=== PATIENT | male | born 1955 | race Caucasian/White ===

== ENCOUNTER 2021-04-30 20:36 | Emergency (ER) | payer MEDICAID, MEDICARE, OTHER ==
[~2021-04-30] VITALS: Ht 157.5 cm; Wt 77.1 kg
[2021-04-30 21:10] VITALS: BP 103/66
--- NOTE | 2021-04-30 21:13 | NUR ---
TO LOBBY A/W BED VIA WHEELCHAIR
[2021-04-30] MEDS ORDERED: NACL 0.9% 1,000 ML IV SCH (22:35)
[2021-04-30] MEDS ORDERED: ONDANSETRON 4 MG/2 ML VIAL IVP ONE (22:35)
--- NOTE | 2021-04-30 22:44 | NUR ---
PT TAKEN TO CT FROM [facility]
[2021-04-30 23:08] LABS: BASOPHILS # (AUTO) 0.1 K/uL (0.00-0.22); BASOPHILS % (AUTO) 0.9 % (0.0-2.0); EOSINOPHILS # (AUTO) 0.1 K/uL (0-0.4); EOSINOPHILS % (AUTO) 1.6 % (0.0-4.0); HEMATOCRIT 46.5 % (36-52); HEMOGLOBIN 15.5 g/dL (12.0-18.0); LYMPHOCYTES # (AUTO) 2.1 K/uL (2.0-11.5); LYMPHOCYTES % (AUTO) 25.7 % (20.5-51.1); MEAN CORPUSCULAR HEMOGLOBIN 30 pg (27-31); MEAN CORPUSCULAR HGB CONC 33 g/dL (33-37); MEAN CORPUSCULAR VOLUME 90.8 fL (80-94); MONOCYTES # (AUTO) 0.7 K/uL (0.8-1.0); MONOCYTES % (AUTO) 8.6 % (1.7-9.3); NEUTROPHILS # (AUTO) 5.1 K/uL (1.8-7.7); NEUTROPHILS % (AUTO) 63.2 % (42.2-75.2); PLATELET COUNT (AUTO) 195 K/uL (140-450); RED BLOOD CELL COUNT(AUTO) 5.12 MIL/uL (4.20-6.10); RED CELL DISTRIBUTION WIDTH 13.4 % (11.6-13.7); WHITE BLOOD COUNT (AUTO) 8.1 K/uL (4.8-10.8)
[2021-04-30 23:28] LABS: ANION GAP 14.1 (8-16); CARBON DIOXIDE 24.7 mmol/L (21-32); CREATININE 1.3 mg/dL (0.6-1.3); POTASSIUM 3.8 mmol/L (3.5-5.1); TOTAL BILIRUBIN 0.9 mg/dL (0.0-1.0)
[2021-05-01] MEDS ORDERED: MAGNESIUM CITRATE 300 ML BTL PO ONE (00:25)
[2021-05-01 02:40] VITALS: BP 112/78
[2021-05-01 02:40] LABS: APPEARANCE,URINE CLOUDY (CLEAR); BILIRUBIN,URINE NEGATIVE (NEGATIVE); BLOOD, URINE 1+ (NEGATIVE); COLOR,URINE YELLOW (YELLOW); LEUKOCYTE ESTERASE ,URINE 3+ (NEGATIVE); NITRITE, URINE POSITIVE (NEGATIVE); PH,URINE 5.5 (5.0-9.0); UGLUCOSE NEGATIVE (NEGATIVE)
--- NOTE | 2021-05-01 02:40 | NUR ---
PATIENT ELOPED FROM FACILITY. DISCHARGE INSTRUCTIONS NOT GIVEN TO PATIENT. DR. CESPEDES NOTIFIED.
[2021-05-01] MEDS ORDERED: CEPH-588 PO (02:50)
[2021-05-01 03:06] LABS: RBC,URINE 0-5 /HPF (0-5); WBC,URINE TOO MANY TO COUNT /HPF (0-5)
== END 2021-05-01 02:40 | disposition left against medical advice (07) ==
LOC: MED 20:36
DX: R33.9 Retention of urine, unspecified (principal); N39.0 Urinary tract infection, site not specified; K56.41 Fecal impaction; Z79.899 Other long term (current) drug therapy
CPT/HCPCS: 36415; 80053; 81001; 83690; 85025; 87086; 99284

== ENCOUNTER 2021-07-14 19:31 | Inpatient (IN) | payer MEDICARE, MEDICAID, SELFPAY ==
[~2021-07-14] VITALS: Ht 160 cm; Wt 63.5 kg
[~2021-07-14 19:31] MED LIST: CEPH-588 PO
[2021-07-14] MEDS ORDERED: NACL 0.9% 1,000 ML IV ONE ×3 (20:50→23:45)
[2021-07-14 23:09] LABS: HEMOGLOBIN 14.9 g/dL (12.0-18.0); MEAN CORPUSCULAR HEMOGLOBIN 30 pg (27-31); MEAN CORPUSCULAR HGB CONC 33 g/dL (33-37); MEAN CORPUSCULAR VOLUME 91.1 fL (80-94); PLATELET COUNT (AUTO) 56 K/uL (140-450); RED BLOOD CELL COUNT(AUTO) 4.94 MIL/uL (4.20-6.10); WHITE BLOOD COUNT (AUTO) 20.7 K/uL (4.8-10.8)
[2021-07-14] MEDS ORDERED: NACL 0.9% 2,000 ML IV ONE (23:20)
[2021-07-14] MEDS ORDERED: VANCOMYCIN 1,000 MG in DEXTROSE 5% 250 ML IV ONE (23:20)
[2021-07-14 23:29] LABS: ALBUMIN 2.7 g/dL (3.4-5.0); ANION GAP 18.7 (8-16); CARBON DIOXIDE 21.6 mmol/L (21-32); CREATININE 3.9 mg/dL (0.6-1.3); POTASSIUM 4.3 mmol/L (3.5-5.1); TOTAL BILIRUBIN 1.4 mg/dL (0.0-1.0)
[2021-07-14 23:32] LABS: LYMPHOCYTES % (MANUAL) 3 % (20-46); MONOCYTES % (MANUAL) 2 % (5-12)
[2021-07-14] MEDS ORDERED: VANCOMYCIN 1,000 MG VIAL ONE (23:35)
[2021-07-14 23:43] LABS: APPEARANCE,URINE CLOUDY (CLEAR); BILIRUBIN,URINE 2+ (NEGATIVE); BLOOD, URINE 3+ (NEGATIVE); COLOR,URINE BROWN (YELLOW); LEUKOCYTE ESTERASE ,URINE 3+ (NEGATIVE); NITRITE, URINE NEGATIVE (NEGATIVE); PH,URINE 6.5 (5.0-9.0); UGLUCOSE NEGATIVE (NEGATIVE)
[2021-07-14] MEDS ORDERED: cefTRIAXone 2,000 MG in DEXTROSE 5% 100 ML IV ONE (23:45)
[2021-07-14 23:51] LABS: PROTHROMBIN TIME 14.6 secs (10.8-13.4)
[2021-07-15 00:08] LABS: RBC,URINE TOO NUMEROUS TO COUN /HPF (0-5)
[2021-07-15 00:09] LABS: WBC,URINE 60-80 /HPF (0-5)
[2021-07-15 00:10] LABS: CALCIUM OXALATE CRYSTALS,UR 0-10 /HPF (None Seen)
[2021-07-15] MEDS ORDERED: NACL 0.9% 1,000 ML IV ONE (00:20)
[2021-07-15] MEDS ORDERED: cefTRIAXone 2,000 MG VIAL ONE (01:16)
[2021-07-15] MEDS ORDERED: NOREPINEPHRINE 4 MG in DEXTROSE 5% 250 ML IV ONE (01:25)
[2021-07-15] MEDS ORDERED: NOREPINEPHRINE 4 MG/4 ML VIAL IV ONE (01:38)
[2021-07-15] MEDS ORDERED: ACETAMINOPHEN 325 MG TAB PO PRN (07:05)
[2021-07-15] MEDS ORDERED: MORPHINE SULFATE 2 MG/ML SYR IVP PRN (07:05)
[2021-07-15] MEDS ORDERED: POTASSIUM CHLORIDE 10 MEQ TABER PO PRN (07:05)
[2021-07-15] MEDS ORDERED: LORazepam 2 MG/ML VIAL IM/IVP PRN (07:05)
[2021-07-15] MEDS ORDERED: ZOLPIDEM 5 MG TAB PO PRN (07:05)
[2021-07-15] MEDS ORDERED: HYDROcodone/APAP 5/325 MG 1 TAB TAB PO PRN (07:05)
[2021-07-15] MEDS ORDERED: MAG SULF 2000 MG/WATER PREMIX 50 ML IV PRN (07:05)
[2021-07-15] MEDS ORDERED: DOCUSATE SODIUM 100 MG GELCAP PO PRN (07:05)
[2021-07-15] MEDS ORDERED: ONDANSETRON 4 MG/2 ML VIAL IM/IVP PRN (07:05)
[2021-07-15 07:37] LABS: BASOPHILS % (AUTO) 0.1 % (0.0-2.0); EOSINOPHILS # (AUTO) 0.5 K/uL (0-0.4); EOSINOPHILS % (AUTO) 2.4 % (0.0-4.0); HEMATOCRIT 42.9 % (36-52); HEMOGLOBIN 14.1 g/dL (12.0-18.0); LYMPHOCYTES # (AUTO) 0.5 K/uL (2.0-11.5); LYMPHOCYTES % (AUTO) 2.4 % (20.5-51.1); MEAN CORPUSCULAR HEMOGLOBIN 30 pg (27-31); MEAN CORPUSCULAR HGB CONC 33 g/dL (33-37); MEAN CORPUSCULAR VOLUME 91.8 fL (80-94); MONOCYTES # (AUTO) 1.1 K/uL (0.8-1.0); MONOCYTES % (AUTO) 4.8 % (1.7-9.3); NEUTROPHILS # (AUTO) 20.6 K/uL (1.8-7.7); NEUTROPHILS % (AUTO) 90.3 % (42.2-75.2); PLATELET COUNT (AUTO) 47 K/uL (140-450); RED BLOOD CELL COUNT(AUTO) 4.67 MIL/uL (4.20-6.10); RED CELL DISTRIBUTION WIDTH 14.5 % (11.6-13.7); WHITE BLOOD COUNT (AUTO) 22.8 K/uL (4.8-10.8)
[2021-07-15] MEDS ORDERED: TAMS0.4C96 PO (08:09)
[2021-07-15 08:30] LABS: CHOL/HDL RATIO 3.1 (1-4.5); MAGNESIUM 1.7 mg/dL (1.8-2.4); PHOSPHORUS 3.9 mg/dL (2.5-4.9); THYROID STIMULATING HORMONE 0.51 uIU/mL (0.34-3.74)
[2021-07-15 09:23] LABS: PROTHROMBIN TIME 16.2 secs (10.8-13.4)
[2021-07-15] MEDS: NACL 0.9% 1,000 ML IV SCH ×3 (11:08→23:53)
[2021-07-15 11:36] LABS: BARBITURATE, URINE NEGATIVE ng/ml (NEG <=200); BENZODIAZEPINE, URINE NEGATIVE ng/mL (NEG <=200); CANNABINOID, URINE NEGATIVE ng/mL (NEG <=50); COCAINE, URINE NEGATIVE ng/mL (NEG <=300); OPIATE, URINE NEGATIVE ng/mL (NEG <=2000); PHENCYCLIDINE SCREEN,URINE NEGATIVE ng/mL (NEG <=25)
[2021-07-15] MEDS ORDERED: PIPERACILLIN/TAZOBACTAM 2.25 GM VIAL IV ONE ×2 (12:11→20:54)
[2021-07-15] MEDS: PIPERACILLIN/TAZOBACTAM 2.25 GM in DEXTROSE 5% 50 ML IV SCH ×2 (12:14→21:10)
[2021-07-15] MEDS ORDERED: bisacodyL 10 MG SUPP RC ONE (14:20)
[2021-07-15] MEDS: SENNA 8.6 MG TAB PO SCH ×2 (17:14→21:10)
[2021-07-15 20:36] VITALS: BP 120/56
[2021-07-15] MEDS: POLYETHYLENE GLYCOL 17 GM/PKT PO SCH (21:10)
[2021-07-15] MEDS: LACTULOSE 20 GM/30 ML UDC PO SCH (21:10)
[2021-07-15 22:00] VITALS: BP 117/55
[2021-07-15 23:00] VITALS: BP 114/53
[2021-07-16] VITALS (19 sets, daily range): BP systolic 104–162; BP diastolic 52–80
[2021-07-16] MEDS ORDERED: PIPERACILLIN/TAZOBACTAM 2.25 GM VIAL IV ONE (04:43)
[2021-07-16] MEDS: PIPERACILLIN/TAZOBACTAM 2.25 GM in DEXTROSE 5% 50 ML IV SCH ×3 (04:45→21:00)
[2021-07-16 06:11] LABS: HEMATOCRIT 40.3 % (36-52); HEMOGLOBIN 13.4 g/dL (12.0-18.0); MEAN CORPUSCULAR HEMOGLOBIN 30 pg (27-31); MEAN CORPUSCULAR HGB CONC 33 g/dL (33-37); MEAN CORPUSCULAR VOLUME 91.3 fL (80-94); PLATELET COUNT (AUTO) 39 K/uL (140-450); RED BLOOD CELL COUNT(AUTO) 4.42 MIL/uL (4.20-6.10); RED CELL DISTRIBUTION WIDTH 14.5 % (11.6-13.7)
[2021-07-16 06:23] LABS: ANION GAP 16.2 (8-16); CARBON DIOXIDE 18.7 mmol/L (21-32); CREATININE 3.2 mg/dL (0.6-1.3); POTASSIUM 3.9 mmol/L (3.5-5.1)
[2021-07-16 06:24] LABS: WHITE BLOOD COUNT (AUTO) 27.8 K/uL (4.8-10.8)
[2021-07-16 06:34] LABS: MAGNESIUM 1.9 mg/dL (1.8-2.4); PHOSPHORUS 4.1 mg/dL (2.5-4.9)
[2021-07-16 06:58] LABS: BASOPHILS % (MANUAL) 0 % (0-2); EOSINOPHILS % (MANUAL) 2 % (0-4); LYMPHOCYTES % (MANUAL) 3 % (20-46); MONOCYTES % (MANUAL) 5 % (5-12)
[2021-07-16 08:06] LABS: T4 (THYROXINE) 5.3 ug/dL (4.5-12.0)
[2021-07-16] MEDS: NACL 0.9% 1,000 ML IV SCH ×2 (08:20→16:50)
[2021-07-16] MEDS: POLYETHYLENE GLYCOL 17 GM/PKT PO SCH ×2 (09:00→21:00)
[2021-07-16] MEDS: LACTULOSE 20 GM/30 ML UDC PO SCH ×2 (09:00→21:00)
[2021-07-16] MEDS: TAMSULOSIN 0.4 MG CAP PO SCH (09:00)
[2021-07-16] MEDS: SENNA 8.6 MG TAB PO SCH ×4 (09:00→21:00)
[2021-07-17] VITALS: BP 117/70
[2021-07-17] MEDS: NACL 0.9% 1,000 ML IV SCH ×2 (00:45→11:00)
[2021-07-17 04:00] VITALS: BP 137/80
[2021-07-17] MEDS: PIPERACILLIN/TAZOBACTAM 2.25 GM in DEXTROSE 5% 50 ML IV SCH ×3 (04:51→21:18)
[2021-07-17 06:20] LABS: HEMATOCRIT 40.9 % (36-52); HEMOGLOBIN 13.4 g/dL (12.0-18.0); MEAN CORPUSCULAR HEMOGLOBIN 30 pg (27-31); MEAN CORPUSCULAR HGB CONC 33 g/dL (33-37); MEAN CORPUSCULAR VOLUME 91.4 fL (80-94); PLATELET COUNT (AUTO) 39 K/uL (140-450); RED BLOOD CELL COUNT(AUTO) 4.47 MIL/uL (4.20-6.10); RED CELL DISTRIBUTION WIDTH 14.6 % (11.6-13.7)
[2021-07-17 06:31] LABS: ANION GAP 15.9 (8-16); CARBON DIOXIDE 18.9 mmol/L (21-32); CREATININE 2.4 mg/dL (0.6-1.3); POTASSIUM 3.8 mmol/L (3.5-5.1)
[2021-07-17 06:44] LABS: MAGNESIUM 1.9 mg/dL (1.8-2.4); PHOSPHORUS 3.8 mg/dL (2.5-4.9)
[2021-07-17 08:00] VITALS: BP 142/80
[2021-07-17 08:41] LABS: LYMPHOCYTES % (MANUAL) 3 % (20-46); MONOCYTES % (MANUAL) 2 % (5-12)
[2021-07-17] MEDS: POLYETHYLENE GLYCOL 17 GM/PKT PO SCH ×2 (09:15→21:20)
[2021-07-17] MEDS: SENNA 8.6 MG TAB PO SCH ×4 (09:16→21:19)
[2021-07-17] MEDS: LACTULOSE 20 GM/30 ML UDC PO SCH ×4 (09:16→21:19)
[2021-07-17] MEDS: TAMSULOSIN 0.4 MG CAP PO SCH (09:16)
[2021-07-17 12:00] VITALS: BP 148/81
[2021-07-17 16:00] VITALS: BP 137/69
[2021-07-17] MEDS ORDERED: MAGNESIUM CITRATE 300 ML BTL PO SCH (16:40)
[2021-07-17] MEDS: DEXT 5% / NACL 0.2% 1,000 ML IV SCH (17:01)
[2021-07-17 20:00] VITALS: BP 128/72
[2021-07-17] MEDS: bisacodyL 10 MG SUPP RC SCH (21:20)
[2021-07-18 00:04] VITALS: BP 121/71
[2021-07-18 04:00] VITALS: BP 115/65
[2021-07-18] MEDS: PIPERACILLIN/TAZOBACTAM 2.25 GM in DEXTROSE 5% 50 ML IV SCH ×3 (04:51→21:38)
[2021-07-18] MEDS: DEXT 5% / NACL 0.2% 1,000 ML IV SCH ×2 (05:23→17:00)
[2021-07-18 06:07] LABS: HEPATITIS A ANTIBODY IGM Negative (Negative); HEPATITIS B CORE AB TOTAL Negative (Negative); HEPATITIS B SURFACE ANTIBODY Non Reactive (.); HEPATITIS B SURFACE ANTIGEN Negative (Negative)
[2021-07-18 06:26] LABS: BASOPHILS # (AUTO) 0.1 K/uL (0.00-0.22); BASOPHILS % (AUTO) 0.5 % (0.0-2.0); EOSINOPHILS # (AUTO) 0.1 K/uL (0-0.4); EOSINOPHILS % (AUTO) 0.4 % (0.0-4.0); HEMATOCRIT 41.7 % (36-52); HEMOGLOBIN 13.6 g/dL (12.0-18.0); LYMPHOCYTES # (AUTO) 1.6 K/uL (2.0-11.5); LYMPHOCYTES % (AUTO) 8.5 % (20.5-51.1); MEAN CORPUSCULAR HEMOGLOBIN 30 pg (27-31); MEAN CORPUSCULAR HGB CONC 33 g/dL (33-37); MEAN CORPUSCULAR VOLUME 92.2 fL (80-94); MONOCYTES # (AUTO) 1.1 K/uL (0.8-1.0); MONOCYTES % (AUTO) 5.7 % (1.7-9.3); NEUTROPHILS # (AUTO) 16.1 K/uL (1.8-7.7); NEUTROPHILS % (AUTO) 84.9 % (42.2-75.2); PLATELET COUNT (AUTO) 39 K/uL (140-450); RED BLOOD CELL COUNT(AUTO) 4.52 MIL/uL (4.20-6.10); RED CELL DISTRIBUTION WIDTH 14.6 % (11.6-13.7); WHITE BLOOD COUNT (AUTO) 18.9 K/uL (4.8-10.8)
[2021-07-18 06:32] LABS: MAGNESIUM 1.9 mg/dL (1.8-2.4); PHOSPHORUS 3.3 mg/dL (2.5-4.9)
[2021-07-18 06:48] LABS: ANION GAP 14.1 (8-16); CARBON DIOXIDE 21.3 mmol/L (21-32); CREATININE 2.2 mg/dL (0.6-1.3); POTASSIUM 3.4 mmol/L (3.5-5.1)
[2021-07-18 08:00] VITALS: BP 147/74
[2021-07-18] MEDS: TAMSULOSIN 0.4 MG CAP PO SCH (09:40)
[2021-07-18] MEDS: LACTULOSE 20 GM/30 ML UDC PO SCH ×4 (09:40→21:37)
[2021-07-18] MEDS: POLYETHYLENE GLYCOL 17 GM/PKT PO SCH ×4 (09:41→21:36)
[2021-07-18] MEDS: SENNA 8.6 MG TAB PO SCH ×3 (09:41→21:36)
[2021-07-18 12:00] VITALS: BP 146/77
[2021-07-18] MEDS ORDERED: MAGNESIUM CITRATE 300 ML BTL PO SCH (14:30)
[2021-07-18 16:00] VITALS: BP 146/77
[2021-07-18] MEDS: bisacodyL 10 MG SUPP RC SCH (21:37)
[2021-07-18 23:16] VITALS: BP 138/69
[2021-07-19] MEDS: DEXT 5% / NACL 0.2% 1,000 ML IV SCH ×2 (02:49→14:17)
[2021-07-19 04:00] VITALS: BP 129/72
[2021-07-19 05:34] LABS: BASOPHILS # (AUTO) 0.1 K/uL (0.00-0.22); BASOPHILS % (AUTO) 0.6 % (0.0-2.0); EOSINOPHILS # (AUTO) 0.2 K/uL (0-0.4); EOSINOPHILS % (AUTO) 1.9 % (0.0-4.0); HEMATOCRIT 41.3 % (36-52); HEMOGLOBIN 13.8 g/dL (12.0-18.0); LYMPHOCYTES # (AUTO) 1.4 K/uL (2.0-11.5); LYMPHOCYTES % (AUTO) 12.6 % (20.5-51.1); MEAN CORPUSCULAR HEMOGLOBIN 30 pg (27-31); MEAN CORPUSCULAR HGB CONC 33 g/dL (33-37); MEAN CORPUSCULAR VOLUME 90.3 fL (80-94); MONOCYTES % (AUTO) 8.7 % (1.7-9.3); NEUTROPHILS # (AUTO) 8.4 K/uL (1.8-7.7); NEUTROPHILS % (AUTO) 76.2 % (42.2-75.2); PLATELET COUNT (AUTO) 33 K/uL (140-450); RED BLOOD CELL COUNT(AUTO) 4.58 MIL/uL (4.20-6.10); RED CELL DISTRIBUTION WIDTH 14.5 % (11.6-13.7); WHITE BLOOD COUNT (AUTO) 11.1 K/uL (4.8-10.8)
[2021-07-19] MEDS: PIPERACILLIN/TAZOBACTAM 2.25 GM in DEXTROSE 5% 50 ML IV SCH ×3 (05:36→21:42)
[2021-07-19 06:11] LABS: ANION GAP 12.2 (8-16); CARBON DIOXIDE 23.7 mmol/L (21-32); CREATININE 1.6 mg/dL (0.6-1.3)
[2021-07-19 06:13] LABS: POTASSIUM 2.9 mmol/L (3.5-5.1)
[2021-07-19 06:14] LABS: MAGNESIUM 1.6 mg/dL (1.8-2.4)
[2021-07-19 08:16] VITALS: BP 148/77
[2021-07-19] MEDS: TAMSULOSIN 0.4 MG CAP PO SCH (09:00)
[2021-07-19] MEDS: POLYETHYLENE GLYCOL 17 GM/PKT PO SCH (09:00)
[2021-07-19] MEDS: SENNA 8.6 MG TAB PO SCH (09:00)
[2021-07-19] MEDS ORDERED: fentaNYL citrate 0.05 MG/ML VIAL ONE (11:48)
[2021-07-19] MEDS ORDERED: MIDAZOLAM 5 MG/5 ML VIAL ONE (11:48)
[2021-07-19] MEDS ORDERED: diphenhydrAMINE 50 MG/ML VIAL ONE (11:48)
[2021-07-19] MEDS: LACTULOSE 20 GM/30 ML UDC PO SCH ×2 (11:56→14:02)
[2021-07-19 12:00] VITALS: BP 141/69
[2021-07-19] MEDS ORDERED: ATROPINE 0.4 MG/ML VIAL IVP ONE (12:45)
[2021-07-19] MEDS ORDERED: MIDAZOLAM 2 MG/2 ML VIAL IVP ONE (12:45)
[2021-07-19] MEDS ORDERED: fentaNYL citrate 0.05 MG/ML VIAL IVP ONE (12:45)
[2021-07-19] MEDS ORDERED: ATROPINE 1 MG/10 ML SYR IVP ONE (13:10)
[2021-07-19] MEDS ORDERED: POTASSIUM CHLORIDE 20% 40 MEQ/15 ML UDC GT SCH (13:30)
[2021-07-19 16:00] VITALS: BP 143/65
[2021-07-19 20:00] VITALS: BP 135/65
[2021-07-19] MEDS: bisacodyL 10 MG SUPP RC SCH (21:42)
[2021-07-20] VITALS (7 sets, daily range): BP systolic 113–132; BP diastolic 62–92
[2021-07-20] MEDS: DEXT 5% / NACL 0.2% 1,000 ML IV SCH (04:35)
[2021-07-20 05:33] LABS: BASOPHILS % (AUTO) 0.4 % (0.0-2.0); EOSINOPHILS # (AUTO) 0.2 K/uL (0-0.4); EOSINOPHILS % (AUTO) 1.6 % (0.0-4.0); HEMATOCRIT 42.5 % (36-52); HEMOGLOBIN 14.2 g/dL (12.0-18.0); LYMPHOCYTES # (AUTO) 1.4 K/uL (2.0-11.5); LYMPHOCYTES % (AUTO) 10.8 % (20.5-51.1); MEAN CORPUSCULAR HEMOGLOBIN 30 pg (27-31); MEAN CORPUSCULAR HGB CONC 34 g/dL (33-37); MONOCYTES # (AUTO) 0.9 K/uL (0.8-1.0); MONOCYTES % (AUTO) 6.9 % (1.7-9.3); NEUTROPHILS # (AUTO) 10.7 K/uL (1.8-7.7); NEUTROPHILS % (AUTO) 80.3 % (42.2-75.2); PLATELET COUNT (AUTO) 40 K/uL (140-450); RED BLOOD CELL COUNT(AUTO) 4.72 MIL/uL (4.20-6.10); RED CELL DISTRIBUTION WIDTH 14.5 % (11.6-13.7); WHITE BLOOD COUNT (AUTO) 13.3 K/uL (4.8-10.8)
[2021-07-20 05:56] LABS: ANION GAP 9.8 (8-16); CARBON DIOXIDE 27.2 mmol/L (21-32); CREATININE 1.3 mg/dL (0.6-1.3)
[2021-07-20 06:13] LABS: MAGNESIUM 1.5 mg/dL (1.8-2.4); PHOSPHORUS 2.9 mg/dL (2.5-4.9)
[2021-07-20] MEDS: LACTULOSE 20 GM/30 ML UDC PO SCH (10:27)
[2021-07-20] MEDS: TAMSULOSIN 0.4 MG CAP PO SCH (10:27)
[2021-07-20] MEDS ORDERED: SULF-59 PO (15:09)
[2021-07-20] MEDS ORDERED: POTA10TA81 PO (15:11)
[2021-07-20] MEDS ORDERED: POTA20TA49 PO (15:11)
[2021-07-20] MEDS ORDERED: POTA-599 PO (15:13)
[2021-07-20] MEDS: bisacodyL 10 MG SUPP RC SCH (20:41)
[2021-07-21] VITALS: BP 141/73
[2021-07-21 04:00] VITALS: BP 118/73
[2021-07-21 08:00] VITALS: BP 133/79
[2021-07-21] MEDS: LACTULOSE 20 GM/30 ML UDC PO SCH (10:00)
[2021-07-21] MEDS: TAMSULOSIN 0.4 MG CAP PO SCH (10:00)
[2021-07-21] MEDS ORDERED: POTASSIUM CHLORIDE 20% 40 MEQ/15 ML UDC PO PRN (10:00)
[2021-07-21] MEDS ORDERED: POTA10TA70 PO (11:35)
[2021-07-21 12:00] VITALS: BP 134/75
[2021-07-21 12:08] VITALS: BP 133/79
== END 2021-07-21 12:35 | disposition home health service (06) | DRG 871 ==
LOC: MED 19:31 → MIC 20:20 → UNDOADMIN 07-15 08:00 → MIC 07-15 08:00 → MTU 07-16 19:50 → MIC 07-16 19:50
PROC: 0DBE8ZZ Excision of Large Intestine, Via Natural or Artificial Opening Endoscopic (ICD-10-PCS; principal; 2021-07-19 13:20)
DX: A41.9 Sepsis, unspecified organism (principal); N17.0 Acute kidney failure with tubular necrosis; E43 Unspecified severe protein-calorie malnutrition; R65.21 Severe sepsis with septic shock; G93.41 Metabolic encephalopathy; E87.0 Hyperosmolality and hypernatremia; N39.0 Urinary tract infection, site not specified; D68.59 Other primary thrombophilia; Q43.8 Other specified congenital malformations of intestine; K62.5 Hemorrhage of anus and rectum; E87.8 Other disorders of electrolyte and fluid balance, not elsewhere classified; G80.9 Cerebral palsy, unspecified; E86.0 Dehydration; N40.1 Benign prostatic hyperplasia with lower urinary tract symptoms; D69.6 Thrombocytopenia, unspecified; K56.41 Fecal impaction; M41.80 Other forms of scoliosis, site unspecified; R74.01 Elevation of levels of liver transaminase levels; M21.962 Unspecified acquired deformity of left lower leg; R33.8 Other retention of urine; E83.42 Hypomagnesemia; E87.6 Hypokalemia; Z20.822 Contact with and (suspected) exposure to COVID-19; B96.20 Unspecified Escherichia coli [E. coli] as the cause of diseases classified elsewhere; Z79.2 Long term (current) use of antibiotics; Z79.899 Other long term (current) drug therapy; Z68.24 Body mass index [BMI] 24.0-24.9, adult
CPT/HCPCS: 36415; 71045; 73610; 74018; 76705; 76770; 78582; 80048; 80053; 80305; 81001; 82150; 82272; 83036; 83605; 83690; 83735; 83880; 84100; 84134; 84436; 84443; 84484; 85025; 85379; 85610; 85730; 86704; 86706; 86708; 86709; 86803; 87040; 87081; 87086; 87340; 88305; 93005; 96361; 96365; 96367; 97110; 97112; 97163-GP; 97530; 99291; J0461; J0696; J1200; J2250; J2543; J3010; J3370; J3475; J3490; J7030; J7060; Q0092

== ENCOUNTER 2021-09-11 10:27 | Emergency (ER) | payer MEDICARE, MEDICAID ==
[~2021-09-11] VITALS: Ht 157.5 cm; Wt 63.5 kg
[~2021-09-11 10:27] MED LIST changes: -CEPH-588 PO; +POTA-599 PO; +POTA10TA70 PO; +SULF-59 PO; +TAMS0.4C96 PO
[2021-09-11 11:28] VITALS: BP 91/42
[2021-09-11] MEDS ORDERED: CLINDAMYCIN 600 MG/4 ML VIAL ONE (11:49)
[2021-09-11] MEDS ORDERED: CLINDAMYCIN 600 MG/4 ML VIAL IM ONE (11:50)
[2021-09-11 12:09] LABS: BASOPHILS # (AUTO) 0.1 K/uL (0.00-0.22); BASOPHILS % (AUTO) 0.3 % (0.0-2.0); EOSINOPHILS % (AUTO) 0.2 % (0.0-4.0); HEMATOCRIT 38.1 % (36-52); HEMOGLOBIN 12.8 g/dL (12.0-18.0); LYMPHOCYTES # (AUTO) 0.9 K/uL (2.0-11.5); LYMPHOCYTES % (AUTO) 5.2 % (20.5-51.1); MEAN CORPUSCULAR HEMOGLOBIN 30 pg (27-31); MEAN CORPUSCULAR HGB CONC 34 g/dL (33-37); MEAN CORPUSCULAR VOLUME 88.1 fL (80-94); MONOCYTES # (AUTO) 1.6 K/uL (0.8-1.0); MONOCYTES % (AUTO) 9.1 % (1.7-9.3); NEUTROPHILS # (AUTO) 15.2 K/uL (1.8-7.7); NEUTROPHILS % (AUTO) 85.2 % (42.2-75.2); PLATELET COUNT (AUTO) 203 K/uL (140-450); RED BLOOD CELL COUNT(AUTO) 4.33 MIL/uL (4.20-6.10); RED CELL DISTRIBUTION WIDTH 14.7 % (11.6-13.7); WHITE BLOOD COUNT (AUTO) 17.8 K/uL (4.8-10.8)
[2021-09-11 12:26] LABS: ANION GAP 14.6 (8-16); CARBON DIOXIDE 21.9 mmol/L (21-32); CREATININE 0.9 mg/dL (0.6-1.3); POTASSIUM 3.5 mmol/L (3.5-5.1)
[2021-09-11] MEDS: CLINDAMYCIN 600 MG in DEXTROSE 5% 50 ML IV ONE (13:12)
[2021-09-11] MEDS: NACL 0.9% 1,000 ML IV ONE (13:13)
[2021-09-11] MEDS ORDERED: CLIN300C2 PO (14:19)
[2021-09-11] MEDS ORDERED: CEPH-588 PO (14:20)
[2021-09-11 14:28] VITALS: BP 112/69
== END 2021-09-11 14:28 | disposition home or self-care (01) ==
LOC: MED 10:27
DX: M71.122 Other infective bursitis, left elbow (principal)
CPT/HCPCS: 36415; 73080; 80048; 81002; 83605; 85025; 86140; 96365; 99284; J3490; J7030; Q0092

== ENCOUNTER 2021-09-26 13:25 | Inpatient (IN) | payer MEDICARE, MEDICAID ==
[~2021-09-26] VITALS: Ht 157.5 cm; Wt 60.8 kg
[~2021-09-26 13:25] MED LIST changes: +CEPH-588 PO; +CLIN300C2 PO
--- NOTE | 2021-09-26 13:40 | NUR ---
BRUNILDAA TO ER RG
[2021-09-26 13:45] VITALS: BP 152/87
[2021-09-26] MEDS ORDERED: VANCOMYCIN 1,000 MG in DEXTROSE 5% 250 ML IV ONE (15:20)
[2021-09-26 15:40] LABS: BASOPHILS # (AUTO) 0.1 K/uL (0.00-0.22); BASOPHILS % (AUTO) 0.7 % (0.0-2.0); EOSINOPHILS # (AUTO) 0.1 K/uL (0-0.4); EOSINOPHILS % (AUTO) 1.2 % (0.0-4.0); HEMATOCRIT 33.5 % (36-52); HEMOGLOBIN 11.3 g/dL (12.0-18.0); LYMPHOCYTES # (AUTO) 1.3 K/uL (2.0-11.5); LYMPHOCYTES % (AUTO) 10.4 % (20.5-51.1); MEAN CORPUSCULAR HEMOGLOBIN 29 pg (27-31); MEAN CORPUSCULAR HGB CONC 34 g/dL (33-37); MEAN CORPUSCULAR VOLUME 86.6 fL (80-94); MONOCYTES # (AUTO) 1.1 K/uL (0.8-1.0); MONOCYTES % (AUTO) 9.1 % (1.7-9.3); NEUTROPHILS # (AUTO) 9.6 K/uL (1.8-7.7); NEUTROPHILS % (AUTO) 78.6 % (42.2-75.2); PLATELET COUNT (AUTO) 410 K/uL (140-450); RED BLOOD CELL COUNT(AUTO) 3.87 MIL/uL (4.20-6.10); RED CELL DISTRIBUTION WIDTH 14.3 % (11.6-13.7); WHITE BLOOD COUNT (AUTO) 12.2 K/uL (4.8-10.8)
[2021-09-26 15:59] LABS: ALBUMIN 2.3 g/dL (3.4-5.0); CARBON DIOXIDE 28.9 mmol/L (21-32); CREATININE 0.8 mg/dL (0.6-1.3); POTASSIUM 3.9 mmol/L (3.5-5.1); TOTAL BILIRUBIN 0.2 mg/dL (0.0-1.0)
[2021-09-26] MEDS ORDERED: VANCOMYCIN 1,000 MG VIAL ONE (16:18)
[2021-09-26] MEDS ORDERED: cefTRIAXone 1,000 MG VIAL ONE (16:18)
[2021-09-26 17:53] LABS: APPEARANCE,URINE CLOUDY (CLEAR); BILIRUBIN,URINE NEGATIVE (NEGATIVE); BLOOD, URINE 1+ (NEGATIVE); COLOR,URINE YELLOW (YELLOW); LEUKOCYTE ESTERASE ,URINE 2+ (NEGATIVE); NITRITE, URINE NEGATIVE (NEGATIVE); UGLUCOSE NEGATIVE (NEGATIVE)
[2021-09-26 18:39] LABS: RBC,URINE 11-20 (MOD) /HPF (0-5); WBC,URINE 80-100 /HPF (0-5)
[2021-09-26 18:40] LABS: CALCIUM OXALATE CRYSTALS,UR 0-10 /HPF (None Seen); OTHER CASTS, URINE None Seen /LPF (None Seen)
--- NOTE | 2021-09-26 19:58 | NUR ---
ASSUMED CARE AT THIS TIME
--- NOTE | 2021-09-26 22:00 | NUR ---
RESTING QUIETLY AT THIS TIME.
[2021-09-26] MEDS ORDERED: HYDROcodone/APAP 7.5/325 MG 1 TAB PO PRN (23:10)
[2021-09-26] MEDS ORDERED: ACETAMINOPHEN 325 MG TAB PO PRN (23:10)
[2021-09-26] MEDS ORDERED: ONDANSETRON 4 MG/2 ML VIAL IM/IVP PRN (23:10)
[2021-09-26] MEDS ORDERED: guaiFENesin DM 200/20 MG-10 ML 10 ML UDC PO PRN (23:10)
[2021-09-26] MEDS: NACL 0.9% 1,000 ML IV SCH (23:10)
[2021-09-26] MEDS ORDERED: DOCUSATE SODIUM 100 MG GELCAP PO PRN (23:10)
[2021-09-26] MEDS ORDERED: POTASSIUM CHLORIDE 10 MEQ TABER PO PRN (23:10)
[2021-09-26 23:38] LABS: PROTHROMBIN TIME 10.3 secs (10.8-13.4)
[2021-09-26 23:47] LABS: CHOL/HDL RATIO 3.2 (1-4.5); FREE T4 (FREE THYROXINE) 1.32 ng/dL (0.76-1.46); MAGNESIUM 1.9 mg/dL (1.8-2.4); PHOSPHORUS 4.5 mg/dL (2.5-4.9); THYROID STIMULATING HORMONE 1.25 uIU/mL (0.34-3.74)
--- NOTE | 2021-09-27 04:00 | NUR ---
RESTING IN BED WITH EYES CLOSED, RESPIRATIONS REGULAR AND UNLABORED. ASSISTED WITH POSITIONING FOR COMFORT
[2021-09-27] MEDS: CLOTRIMAZOLE 1% 30 GM CRM TUBE TP SCH ×3 (05:18→21:00)
[2021-09-27] MEDS: PANTOPRAZOLE 40 MG TABEC PO SCH (09:00)
[2021-09-27] MEDS: POTASSIUM CHLORIDE 10 MEQ TABER PO SCH (09:00)
[2021-09-27] MEDS: TAMSULOSIN 0.4 MG CAP PO SCH (09:00)
--- NOTE | 2021-09-27 09:15 | NUR ---
John agrawal in EDM - 09/27/21 at 1422 by [email or web address] PT STATING ON 70 ON BIPAP. RT NOTIFIED.
[2021-09-27 09:55] LABS: BASOPHILS # (AUTO) 0.1 K/uL (0.00-0.22); BASOPHILS % (AUTO) 1.1 % (0.0-2.0); EOSINOPHILS # (AUTO) 0.1 K/uL (0-0.4); EOSINOPHILS % (AUTO) 1.1 % (0.0-4.0); HEMOGLOBIN 11.7 g/dL (12.0-18.0); LYMPHOCYTES # (AUTO) 1.3 K/uL (2.0-11.5); LYMPHOCYTES % (AUTO) 13.7 % (20.5-51.1); MEAN CORPUSCULAR HEMOGLOBIN 29 pg (27-31); MEAN CORPUSCULAR HGB CONC 34 g/dL (33-37); MEAN CORPUSCULAR VOLUME 86.9 fL (80-94); MONOCYTES # (AUTO) 0.9 K/uL (0.8-1.0); MONOCYTES % (AUTO) 9.5 % (1.7-9.3); NEUTROPHILS % (AUTO) 74.6 % (42.2-75.2); PLATELET COUNT (AUTO) 455 K/uL (140-450); RED BLOOD CELL COUNT(AUTO) 4.03 MIL/uL (4.20-6.10); RED CELL DISTRIBUTION WIDTH 14.3 % (11.6-13.7); WHITE BLOOD COUNT (AUTO) 9.4 K/uL (4.8-10.8)
[2021-09-27 10:09] LABS: ANION GAP 10.9 (8-16); CARBON DIOXIDE 31.5 mmol/L (21-32); POTASSIUM 4.4 mmol/L (3.5-5.1)
[2021-09-27] MEDS ORDERED: CRUSHER, PILL MC ONE (10:36)
--- NOTE | 2021-09-27 11:28 | NUR ---
PT MOVED TO BED 7.
--- NOTE | 2021-09-27 14:42 | NUR ---
DC PLANNING: KEO RECEIVED A CALL FROM THE PATIENTS SISTER SLY WHO STATES THAT SHE IS UNABLE TO CARE FOR THE PATIENT. KEO EXPLAINED THAT REFERRALS TO SNF'S CAN BE SENT BUT THE FAMILY NEEDS TO TELL THE PATIENT THAT HE ISN'T DC'ING HOME AND THAT HE NEEDS TO AGREE TO SNF BEFORE REFERRALS CAN BE SENT. SHE STATES SHE WILL CALL THE ED AND SEE IF SHE CAN SPEAK WITH HIM AND WILL CM KNOW IF HE AGREES TO SNF. KEO WILL FOLLOW. Addendum: 09/27/21 at 1518 by Brea Lobo CM DC PLANNING: PER PATIENTS SISTER CELESTINO )[phone]) PATIENT IS AGREEABLE TO SNF. CM WILL SEND TO GENARO MCDONALD TO START REFERRAL PROCESS AND WILL FOLLOW FOR NEEDS. Addendum: 09/28/21 at 1434 by Brae Lobo CM DC PLANNING: REFERRALS SENT TO [facility], [facility] AND [facility]. [facility] DECLINED, LACK OF BEDS, WAIT[facility]. CM WILL FOLLOW. Addendum: 09/28/21 at 1610 by Brea Lobo CM DC PLANNING: [facility] AND [facility] UNABLE TO ACCEPT, NO BEDS, REFERRAL FAXED TO [facility], NO RESPONSE. CM WILL SPEAK WITH GENARO IN AM ABOUT OUT OF NETWORK SNF'S AND WILL REFER DIRECT. CM WILL FOLLOW FOR NEEDS. Addendum: 09/29/21 at 1359 by Brea Lobo CM DC PLANNING: NO IN NETWORK SNF'S ACCEPTING PATIENT, [facility], NO BEDS. PROMED WILLING TO PAY MEDICARE RATES TO ACCEPTING SNF, HARRY AT [facility] IS ALSO WORKING ON PLACEMENT FOR HIM. CM WILL FOLLOW FOR NEEDS. Addendum: 09/29/21 at 1501 by Brea Lobo CM DC PLANNING: PATIENT REFERRED TO [facility] IN [place], WAITING FOR RESPONSE ([phone]). CM WILL FOLLOW. Addendum: 09/29/21 at 1601 by Brea Lobo CM DC PLANNING: NO ACCEPTANCE TO SNF YET, IF PATIENT IS ACCEPTED OVER THE WEEKEND PLEASE CALL [facility] AT [phone], WILL GIVE AFTER HOURS NUMBER. CM WILL FOLLOW. Addendum: 10/02/21 at 1502 by Brea Lobo CM DC PLANNING: PATIENT DECLINED AT [facility] DUE TO INFLUX OF COVID PATIENTS. KEO RECEIVED A CALL FROM THE PATIENTS SISTER SLY STATING THAT SHE IS TAKING THE PATIENT HOME TODAY. KEO SPOKE WITH THE ATTENDING MD DR HOUSTON WHO STATES THAT HE WILL ORDER PO ABX. [employer] ALSO ORDERED, PATIENT ON SERVICE WITH [employer] ([phone]), ORDERS TO [facility] HOME [facility] FOR P.T. AND WOUND CARE FAXED TO [facility] [employer]. HARRY AT [facility] ALSO AWARE THAT PATIENT WILL DC TO HOME TODAY AND WILL ARRANGE FOR [facility] TO RESUME CARE. KEO WILL FOLLOW FOR NEEDS. Addendum: 10/03/21 at 0842 by Brea Lobo CM DC PLANNING: KEO SPOKE WITH THE PATIENTS SISTER SLY THIS MORNING WHO STATES THE FAMILY CANNOT CARE FOR THE PATIENT. GIVEN THE NUMBER FOR THE PATIENTS TYPISTS SUPERVISOR MARICARMEN JONES ([phone]), KEO SPOKE WITH MARICARMEN JONES REGARDING DC NEEDS. SHE STATES SHE WILL CONFER WITH HER RN TO DISCUSS WHAT THE PATIENT NEEDS FOR ALF CARE IN THE HOME CM ENDORSED THAT SNF PLACEMENT IS SHORT TERM. MARICARMEN JONES WILL SPEAK WITH THE FAMILY TO ASSIST WITH A PLAN OF CARE, KEO WILL FOLLOW FOR NEEDS. Addendum: 10/03/21 at 1604 by Brea Lobo CM DC PLANNING: KEO SPOKE WITH THE PATIENT AT BEDSIDE AND UPDATED HIM ON PLACEMENT ATTEMPTS. KEO SPOKE WITH [facility], NEITHER ARE ABLE TO ACCEPT PATIENTS RIGHT NOW. [facility] MIGHT BE ABLE TO ACCEPT THE PATIENT IN AM, REFERRAL FAXED TO THEM. KEO WILL FOLLOW FOR NEEDS. Addendum: 10/04/21 at 1112 by Bera Lobo CM DC PLANNING: [facility] UNABLE TO ACCEPT DUE TO LACK OF DCP. KEO SPOKE WITH THE PATIENTS SISTER SLY TO EXPLAIN BARRIER TO SNF PLACEMENT, SLY STATES SHE IS UNABLE TO HAVE THE PATIENT RETURN HOME EVEN SHORT TERM. KEO LEFT A MESSAGE FOR PATIENTS TYPISTS SUPERVISOR MARICARMEN JONES ASKING FOR AN UPDATE ON DCP. KEO WILL FOLLOW. Addendum: 10/04/21 at 1403 by Brea Lobo CM DC PLANNING: KEO SPOKE WITH MARICARMEN JONES, CLINICALS SENT FOR HER RN TO EVALUATE. STATES THAT [facility] CAN'T TAKE A PATIENT WITH STAGE 3 DECUBITUS AND WILL NEED SNF UNTIL THE WOUND IS LESER. REFERRAL FAXED TO [facility] IN [place], KEO WILL FOLLOW UP. Addendum: 10/05/21 at 1208 by Brea Lobo CM DC PLANNING: KEO MET WITH U[facility]ERTO HAJI, STATES SHE SPOKE WITH THE PATIENTS FAMILY REGARDING DCP. [facility] ACCEPTING TODAY, ROOM 21, [facility] DOCTOR WILL BE ASSIGNED. AUTH FOR [facility] TRANSPORT ([phone]) IS [id number], AUTH FOR FACILITY [id number]. [facility] WILL PICK THE PATIENT UP BETWEEN 2-3 PM. NUMBER TO CALL REPORT IS [phone]. PATIENT WILL CONTINUE ON ZOSYN IV TID AT FACILITY, U[facility]ERTO STATES THEY ARE ABLE TO ADMINISTER. KEO WILL FOLLOW FOR NEEDS. SPOKE WITH PATIENTS ATTENDING MD WHO WILL WRITE THE FINAL DC ORDER AND ABX INSTRUCTIONS. Addendum: 10/05/21 at 1523 by Brea Lobo CM DC PLANNING: KEO SPOKE WITH THE PATIENTS SISTER SLY, CONFIRMED THAT SHE IS AWARE THAT HER BROTHER IS GOING TO [facility]. SHE CONFIRMED THAT SHE SPOKE WITH UMBERTO FROM [facility] EARLIER TODAY AND STATES THAT SHE IS WORKING WITH MARICARMEN JONES FROM THE [facility] REGARDING ALF CARE PLANNING FOR HER BROTHER. ALL QUESTIONS ANSWERED BEFORE CONVERSATION ENDED, CM WILL FOLLOW FOR NEEDS.
--- NOTE | 2021-09-27 15:11 | NUR ---
SLY LLOYD FOR ANY QUESTIONS.
--- NOTE | 2021-09-27 15:44 | NUR ---
PATIENT HAS BEEN SCREENED AND CATEGORIZED HIGH NUTRITION RISK. PATIENT WILL BE SEEN WITHIN 1-2 DAYS OF ADMISSION. BEC[address]
--- NOTE | 2021-09-27 15:49 | NUR ---
EKG AT BEDSIDE.
[2021-09-27] MEDS: NACL 0.9% 1,000 ML IV SCH (16:02)
--- NOTE | 2021-09-27 16:41 | NUR ---
SEEN PT. AT ER ROOM 7 PENDING TRANSFER TO [facility]. SKIN ASSESSMENT DONE WITH NO DETAIL MEASUREMENT AT THIS TIME. PT. ADMITTED WITH MULTIPLE PRESSURE INJURIES, WITH INFECTED SACRALCOCCYX WOUND. QUESTIONABLE OF SCABIES, RASHES TO BLE AND TRUNK OF BODY . POC DISCUSSED WITH UMBERTO COCHRAN. POC DISCUSSED WITH DR. ROSEMARIE MALONEY WITH ELIMITE CREAM PRECAUTIONARY MEASUREMENT,WILL INITIATE WOUND CARE PROTOCOL AT THIS TIME, ALSO REQUEST SURGEON CONSULT TO SACRAL WOUND.
--- NOTE | 2021-09-27 16:41 | NUR ---
375 ML URINE EMPTED FROM A LEG FOLLEY BAG.
[2021-09-27] MEDS ORDERED: cefTRIAXone 1,000 MG VIAL ONE (17:08)
--- NOTE | 2021-09-27 19:23 | NUR ---
GAVE REPORT TO RENO FRAZIER.
[2021-09-27] MEDS ORDERED: PERMETHRIN 5% 60 GM TUBE TP SCH (20:00)
--- NOTE | 2021-09-27 21:00 | NUR ---
CALLED HOUSE [employer] FOR CREAMS ELIMITE AND LOTRIMIN
--- NOTE | 2021-09-27 23:00 | NUR ---
PULLED PT UP IN BED. PT MED CREAMS WERE REQUESTED. WAITING FOR CALL BACK
--- NOTE | 2021-09-28 02:06 | NUR ---
PT REQUESTED GRIFFITHS BAG TO BE EMPTIED . PT SITTING IN BED QUIETLY. BED IN LOWEST POSITION. ALL VSS.
[2021-09-28 08:07] LABS: T4 (THYROXINE) 8.3 ug/dL (4.5-12.0)
[2021-09-28 08:28] LABS: BASOPHILS # (AUTO) 0.1 K/uL (0.00-0.22); BASOPHILS % (AUTO) 1.2 % (0.0-2.0); EOSINOPHILS # (AUTO) 0.1 K/uL (0-0.4); EOSINOPHILS % (AUTO) 1.3 % (0.0-4.0); HEMATOCRIT 35.7 % (36-52); HEMOGLOBIN 11.9 g/dL (12.0-18.0); LYMPHOCYTES # (AUTO) 1.3 K/uL (2.0-11.5); MEAN CORPUSCULAR HEMOGLOBIN 29 pg (27-31); MEAN CORPUSCULAR HGB CONC 33 g/dL (33-37); MEAN CORPUSCULAR VOLUME 87.2 fL (80-94); MONOCYTES % (AUTO) 9.4 % (1.7-9.3); NEUTROPHILS # (AUTO) 7.6 K/uL (1.8-7.7); NEUTROPHILS % (AUTO) 75.1 % (42.2-75.2); PLATELET COUNT (AUTO) 446 K/uL (140-450); RED CELL DISTRIBUTION WIDTH 14.4 % (11.6-13.7); WHITE BLOOD COUNT (AUTO) 10.2 K/uL (4.8-10.8)
--- NOTE | 2021-09-28 08:30 | NUR ---
PT MOVED TO ER BED 13
[2021-09-28 08:53] LABS: ANION GAP 12.5 (8-16); CARBON DIOXIDE 29.8 mmol/L (21-32); CREATININE 1.1 mg/dL (0.6-1.3); POTASSIUM 4.3 mmol/L (3.5-5.1)
--- NOTE | 2021-09-28 10:52 | NUR ---
09/28/21 RD INITIAL ASSESSMENT COMPLETED PLEASE REFER TO NUTRITION ASSESSMENT UNDER CARE ACTIVITY FOR ESTIMATED NUTRITIONAL NEEDS. 1. CONTINUE NPO MEDICALLY APPROPRIATE 2. WHEN MEDICALLY APPROPRIATE, CONSIDER REGULAR DIET 3. PROVIDE TARA BID PER RD PROTOCOL 4. RD TO FOLLOW-UP 2-3 DAYS, HIGH RISK REVIEWED BY KAREN ARGUELLO RD
[2021-09-28] MEDS: PANTOPRAZOLE 40 MG TABEC PO SCH (12:21)
[2021-09-28] MEDS: TAMSULOSIN 0.4 MG CAP PO SCH (12:22)
[2021-09-28] MEDS: POTASSIUM CHLORIDE 10 MEQ TABER PO SCH (12:22)
--- NOTE | 2021-09-28 12:27 | NUR ---
500 cc of urine emptied from patients hoffmann leg bag.
--- NOTE | 2021-09-28 13:35 | NUR ---
LATE ENTRY- VANCOMYCIN DISCONTINUED AT 1800.
[2021-09-28] MEDS ORDERED: cefTRIAXone 1,000 MG VIAL ONE ×2 (17:25→17:48)
[2021-09-28] MEDS: DEXT 5% /NACL 0.9% 1,000 ML IV SCH (18:15)
--- NOTE | 2021-09-28 18:49 | NUR ---
PT GRIFFITHS BAG EMPTIED. PATIENT NEEDS MET. WILL CONTINUE TO MONITOR.
--- NOTE | 2021-09-28 19:15 | NUR ---
Report and transfer of care endorsed to SAMMIE Marsh
--- NOTE | 2021-09-28 19:45 | NUR ---
PT IS AWAKE AND ALERT. DENIES PAIN AT THIS TIME. ALL NEEDS MET. VSS. PT IN STABLE CONDITION. BED LOCKED IN LOWEST POSITION, SIDE RAILS X2 FOR SAFETY.
[2021-09-28] MEDS: CLOTRIMAZOLE 1% 30 GM CRM TUBE TP SCH (21:00)
--- NOTE | 2021-09-28 22:57 | NUR ---
PT GIVEN CRACKERS AND WATER PER REQUEST.
--- NOTE | 2021-09-29 01:45 | NUR ---
PT CHANGED, HAD A BM SOFT AND FORMED. SHEETS, BLANKET AND GOWN CHANGED.
[2021-09-29] MEDS: ALGINATE ROPE MC SCH ×2 (01:49→13:00)
[2021-09-29] MEDS: DEXT 5% /NACL 0.9% 1,000 ML IV SCH ×2 (01:50→14:15)
--- NOTE | 2021-09-29 01:55 | NUR ---
F/C CATHETER REPLACED WITH SIZE 14 USING STERILE TECHNIQUE, 100CC RETURN. PT TOLERATED WELL. VSS. PT IN STABLE CONDITION.
--- NOTE | 2021-09-29 02:03 | NUR ---
WOUND PICTURES AND SWABS COLLECTED, SWABS TAKEN TO LAB.
--- NOTE | 2021-09-29 04:27 | NUR ---
PT IS LAYING BACK IN BED, EYES CLOSED, OPENS TO SOUND. EQUAL RISE AND FALL OF CHEST WALL. VSS. PT IN STABLE CONDITION. ALL NEEDS MET AT THIS TIME. BED LOCKED IN LOWEST POSITION,SIDE RAILS X2 FOR SAFETY.
--- NOTE | 2021-09-29 05:02 | NUR ---
REPORT GIVEN TO SAMMIE CORDON.
--- NOTE | 2021-09-29 05:09 | NUR ---
Patient will be admitted to care of . Admited to [facility]. Will go to [id number]. Belongings list completed. Report to SAMMIE CORDON.
--- NOTE | 2021-09-29 05:20 | NUR ---
PATIENT WAS BROUGHT TO MST UNIT FROM ER AWAKE, ALERT ORIENTED X4. NO ACUTE DISTRESS NOTED, ON ROOM AIR. ALL SAFETY MEASURES IN PLACE. CALL LIGHT WITHIN REACH. PT WITH MULTIPLE WOUNDS. GRIFFITHS CATHETER IN PLACE. ON CLEAR LIQUID DIET.
[2021-09-29 06:49] LABS: ANION GAP 9.9 (8-16); CARBON DIOXIDE 32.1 mmol/L (21-32)
[2021-09-29 07:14] LABS: BASOPHILS # (AUTO) 0.1 K/uL (0.00-0.22); BASOPHILS % (AUTO) 0.8 % (0.0-2.0); EOSINOPHILS # (AUTO) 0.1 K/uL (0-0.4); HEMATOCRIT 35.8 % (36-52); HEMOGLOBIN 11.9 g/dL (12.0-18.0); LYMPHOCYTES # (AUTO) 1.4 K/uL (2.0-11.5); LYMPHOCYTES % (AUTO) 11.3 % (20.5-51.1); MEAN CORPUSCULAR HEMOGLOBIN 29 pg (27-31); MEAN CORPUSCULAR HGB CONC 33 g/dL (33-37); MEAN CORPUSCULAR VOLUME 87.4 fL (80-94); MONOCYTES # (AUTO) 0.9 K/uL (0.8-1.0); MONOCYTES % (AUTO) 7.3 % (1.7-9.3); NEUTROPHILS # (AUTO) 9.9 K/uL (1.8-7.7); NEUTROPHILS % (AUTO) 79.6 % (42.2-75.2); PLATELET COUNT (AUTO) 436 K/uL (140-450); RED BLOOD CELL COUNT(AUTO) 4.09 MIL/uL (4.20-6.10); RED CELL DISTRIBUTION WIDTH 14.2 % (11.6-13.7); WHITE BLOOD COUNT (AUTO) 12.5 K/uL (4.8-10.8)
--- NOTE | 2021-09-29 07:59 | NUR ---
ENDORSED TO AM NURSE IN STABLE CONDITION.
--- NOTE | 2021-09-29 08:09 | NUR ---
RECEIVE REPORT FROM DUCT CLEANER NURSE, PATIENT IN BED NO SOD NOTED AX3 BREATHING EVEN UNLABORED PATIENT HAS NO IV ACCESS, WILL TRY TO INSERT ONE LATER, NOTED WOUNDS ON HIS BOTH ELBOW AND ANKLE, CALLS LIGHT WITHIN REACH ALL SAFETY MEASURES ON PLACE
[2021-09-29 09:00] VITALS: BP 133/63
[2021-09-29] MEDS: CLOTRIMAZOLE 1% 30 GM CRM TUBE TP SCH ×2 (09:00→21:19)
[2021-09-29] MEDS: PANTOPRAZOLE 40 MG TABEC PO SCH (09:24)
[2021-09-29] MEDS: TAMSULOSIN 0.4 MG CAP PO SCH (09:25)
[2021-09-29] MEDS: POTASSIUM CHLORIDE 10 MEQ TABER PO SCH (09:25)
[2021-09-29] MEDS: LEVOFLOXACIN 500 MG/D5W PREMIX 100 ML IV SCH (09:26)
--- NOTE | 2021-09-29 09:45 | NUR ---
PATIENT IN BED NO COMPLAINS GOT MORNING MEDICATION TOLERATED WELL, WOUND CARE NURSE NEXT TO BED SIDE PERFORMING WOUNDS CARE . CALLS LIGHT WITHIN REACH ALL SAFETY MEASURES ON PLACE
--- NOTE | 2021-09-29 10:40 | NUR ---
WOUND CARE EVALUATION NOTE: WOUND ASSESSMENT DONE WITH POC DISCUSSED WITH PT. AND PRIMARY RN. AND PT. PT. VERBALIZES UNDERSTANDING. PER PRIMARY RN WILL APPLY ELIMITE CR. PER ORDER. INTEGUMENTARY -TRUNK OF BODY AND BLE GENERALIZE SKIN RASHES -BILATERAL GROINS, SCROTAL AND BUTTOCKS WITH SEVERE ADITYA RASHES/MOISTURE ASSOCIATED DERMATITIS. 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 -PRESSURE INJURY STAGE 4 TO LEFT ELBOW 2.5X2.5X3CM WOUND BED PINK AND MOIST, NO ODOR, TUNNEL AND UNDERMINING AROUND WOUND EDGE 0.8CM MOIST WITH ALINA WOUND SKIN INTACT WITH SURROUNDING REDNESS INDICATED FURTHER DAMAGE. -PRESSURE INJURY UN-STAGEABLE TO RIGHT WRIST 2X2CM DRY STABLE BROWN ESCHAR TISSUE WITH ALINA WOUND SKIN INTACT - PRESSURE INJURY SACRALCOCCYX STAGE 3 WOUND 3X1X0.3CM WOUND BED PINK, MOIST, NO ODOR, ALINA-WOUND SKIN TO ALINA-ANAL AND BILATERAL ISCHIUM DENUDED SKIN SEVERE MOISTURE ASSOCIATED DERMATITIS FURTHER DAMAGE INDICATED -PRESSURE INJURY UN-STAGEABLE TO RIGHT MEDIAL MALLEOLUS 3X2CM BROWN SCAB MOIST WITH ALINA WOUND SKIN INTACT AND SURROUNDING REDNESS INDICATED FURTHER DAMAGE. -PRESSURE INJURY UN-STAGEABLE TO RIGHT HEEL 2X0.5CM AND ABOVE HEEL ACHILLES AREA 1X0.5CM, BOTH WOUND BEDS ARE MOIST WITH PIKE COLOR SLOUGH TISSUE , NO ODOR, ALINA WOUND SKIN INTACT RECOMMENDATIONS: -APPLY ELIMITE CREAM PER DIRECTIONS -CLEANSE BILATERAL GROINS, SCROTAL AND BUTTOCKS WITH SEVERE ADITYA RASHES WITH SOAP AND WATER, PAT DRY, APPLY NYSTATIN CREAM BID AND PRN IF SOILING -CLEANSE LEFT AND RIGHT ELBOWS, SACRALCOCCYX, RIGHT MEDIAL ABLE AND RIGHT HEEL WOUNDS WITH NS, PAT DRY, APPLY ALGINATE DRESSING TO WOUND BEDS COVER WITH DRY DRESSING QD AND PRN IF SOILING. -APPLY FOAM DRESSING TO ALL BONY AREAS SUCH SHOULDERS, SCAPULARS, ELBOWS, KNEES, ANKLES, SPIN Q3 DAYS AND PRN IF SOILING -TURN AND REPOSITION PATIENT Q2H, KEEP PT. DRY AND CLEAN -HEEL PROTECTOR TO LEFT HEEL, ELEVATED RIGHT STUMP -ASSESS AND MONITOR SKIN CONDITION DURING POSITION CHANGE, PLEASE PAY ATTENTION TO RIGHT BUTTOCKS, OFF LOADING WITH PILLOWS -OFFLOAD BILATERAL HEELS BY PLACING PILLOWS UNDER CALVES AT ALL TIMES, UNLESS OTHERWISE CONTRAINDICATED -PRESSURE REDISTRIBUTION SURFACE THERAPY -PLEASE FOLLOW RD RECOMMENDATIONS
--- NOTE | 2021-09-29 11:40 | NUR ---
PHYSICAL THERAPY CO-SIGN The Physical Therapy Progress Notes documented by Quality Assurance Analyst have been reviewed. Reviewed/Co-Signed by: Hannah Knowles Documentation Done by: RONALD SUTHERLAND PTA Addendum: 09/29/21 at 1140 by Hannah Knowles PT Amended: Links added.
--- NOTE | 2021-09-29 12:22 | NUR ---
PATIENT IN BED NO COMPLAINS NO SOD NOTED, NEW IV WAS INSERTED CALLS LIGHT WITHIN REACH ALL SAFETY MEASURES ON PLACE
[2021-09-29] MEDS: NYSTATIN CRE 100 MU/GM 15 GM TUBE TP SCH (13:00)
--- NOTE | 2021-09-29 14:20 | NUR ---
PATIENT IN BED NO COMPLAINS NO SOD NOTED CALLS LIGHT WITHIN REACH ALL SAFETY MEASURES ON PLACE
--- NOTE | 2021-09-29 16:47 | NUR ---
PATIENT IN BED NO COMPLAINS NO SOD NOTED CALLS LIGHT WITHIN REACH ALL SAFETY MEASURES ON PLACE
--- NOTE | 2021-09-29 18:32 | NUR ---
PATIENT IN BED NO COMPLAINS NO SOD NOTED CALLS LIGHT WITHIN REACH ALL SAFETY MEASURES ON PLACE
--- NOTE | 2021-09-29 19:57 | NUR ---
full bedside report given to water treatment specialist nurse
--- NOTE | 2021-09-29 19:58 | NUR ---
RECEIVED REPORT FORM MORNING SHIFT NURSE FOR CONTINUITY OF CARE. PATIENT IS STABLE IN BED. A&OX4. VERBALLY RESPONSIVE AND ABLE TO COMMUNICATE NEEDS. DENIES PAIN AT THIS TIME. BREATHING EVEN AND UNLABORED. ON ROOM AIR WITH NO APPARENT S/SX OF ACUTE DISTRESS. IV SITE TO THE LAC 22G INTACT/PATENT WITH D5NS INFUSING AT 70ML/HOUR. PLAN OF CARE AND WHITE COMMUNICATION BOARD UPDATED. BED IN LOW/LOCKED POSITION. CALL LIGHT WITHIN REACH. WILL CONTINUE TO MONITOR.
[2021-09-29 20:00] VITALS: BP 129/65
--- NOTE | 2021-09-29 20:00 | NUR ---
Patient's Plan of Care was discussed and reviewed with LIFE EDUCATOR: JOHN ROPER
--- NOTE | 2021-09-29 20:00 | NUR ---
Patient's Plan of Care was discussed and reviewed with SAFE DEPOSIT ATTENDANT: JOHN ROPER Addendum: 09/30/21 at 0618 by Samira Jacob RN RN PT IS COVERED BY SOSA
--- NOTE | 2021-09-29 22:00 | NUR ---
ADMINISTERED SCHEDULED MEDICATIONS PER MD ORDER. TOLERATED WELL. NO ADVERSE REACTION NOTED. PATIENT DENIES PAIN. RESPIRATIONS EVEN AND UNLABORED WITH NO APPARENT S/SX OF ACUTE DISTRESS. WHITE COMMUNICATION BOARD UPDATED. ALL SAFETY MEASURES IN PLACE. CALL LIGHT WITHIN REACH. ALL SAFETY MEASURES IN PLACE. CALL LIGHT WITHIN REACH.
--- NOTE | 2021-09-30 | NUR ---
CHECKED PATIENT. STABLE AND ASLEEP IN HIGH KLINE'S POSITION. CHEST IS RISING AND FALLING. RESPIRATIONS EVEN AND UNLABORED WITH NO APPARENT S/SX OF ACUTE DISTRESS. WHITE COMMUNICATION BOARD UPDATED. ALL SAFETY MEASURES IN PLACE. CALL LIGHT WITHIN REACH. WILL CONTINUE TO MONITOR.
[2021-09-30] MEDS: NYSTATIN CRE 100 MU/GM 15 GM TUBE TP SCH ×2 (01:19→13:38)
--- NOTE | 2021-09-30 02:00 | NUR ---
ROUNDED ON PATIENT. STABLE AND ASLEEP WITH HOB ELEVATED AT 45 DEGREES. CHEST IS RISING AND FALLING. RESPIRATIONS EVEN AND UNLABORED WITH NO APPARENT S/SX OF ACUTE DISTRESS. WHITE COMMUNICATION BOARD UPDATED. ALL SAFETY MEASURES IN PLACE. CALL LIGHT WITHIN REACH. WILL CONTINUE TO MONITOR.
[2021-09-30 04:00] VITALS: BP 124/70
--- NOTE | 2021-09-30 04:00 | NUR ---
PROVIDED SKIN CARE. CHANGED SOILED DRESSINGS. PROVIDED HEEL PROTECTOR ON RIGHT HEEL PER WC ORDER. TOLERATED WELL. DENIES PAIN RESPIRATIONS EVEN AND UNLABORED WITH NO APPARENT S/SX OF ACUTE DISTRESS. WHITE COMMUNICATION BOARD UPDATED. ALL SAFETY MEASURES IN PLACE. CALL LIGHT WITHIN REACH. WILL CONTINUE TO MONITOR.
--- NOTE | 2021-09-30 06:00 | NUR ---
REPLACED IVF WITH NEW BAG. PATIENT IS AWAKE AND STABLE. DENIES PAIN. RESPIRATIONS EVEN AND UNLABORED WITH NO APPARENT S/SX OF ACUTE DISTRESS. WHITE COMMUNICATION BOARD UPDATED. ALL SAFETY MEASURES IN PLACE. CALL LIGHT WITHIN REACH. WILL CONTINUE TO MONITOR.
[2021-09-30] MEDS: DEXT 5% /NACL 0.9% 1,000 ML IV SCH ×2 (06:14→20:32)
[2021-09-30 06:55] LABS: BASOPHILS # (AUTO) 0.1 K/uL (0.00-0.22); BASOPHILS % (AUTO) 0.7 % (0.0-2.0); EOSINOPHILS # (AUTO) 0.2 K/uL (0-0.4); EOSINOPHILS % (AUTO) 1.9 % (0.0-4.0); HEMATOCRIT 35.7 % (36-52); HEMOGLOBIN 12.3 g/dL (12.0-18.0); LYMPHOCYTES # (AUTO) 1.6 K/uL (2.0-11.5); LYMPHOCYTES % (AUTO) 15.7 % (20.5-51.1); MEAN CORPUSCULAR HEMOGLOBIN 30 pg (27-31); MEAN CORPUSCULAR HGB CONC 34 g/dL (33-37); MEAN CORPUSCULAR VOLUME 86.1 fL (80-94); MONOCYTES # (AUTO) 0.9 K/uL (0.8-1.0); NEUTROPHILS # (AUTO) 7.2 K/uL (1.8-7.7); NEUTROPHILS % (AUTO) 72.7 % (42.2-75.2); PLATELET COUNT (AUTO) 428 K/uL (140-450); RED BLOOD CELL COUNT(AUTO) 4.15 MIL/uL (4.20-6.10); RED CELL DISTRIBUTION WIDTH 14.3 % (11.6-13.7); WHITE BLOOD COUNT (AUTO) 9.9 K/uL (4.8-10.8)
--- NOTE | 2021-09-30 07:30 | NUR ---
RECEIVED ENDORSEMENT FROM SMART ENERGY SPECIALIST NURSE FOR CONTINUITY OF CARE.
--- NOTE | 2021-09-30 07:30 | NUR ---
ENDORSED PATIENT TO MORNING SHIFT NURSE FOR CONTINUITY OF CARE. PATIENT IS STABLE.
[2021-09-30 07:37] LABS: ANION GAP 9.4 (8-16); CARBON DIOXIDE 31.6 mmol/L (21-32); CREATININE 1.1 mg/dL (0.6-1.3)
[2021-09-30] MEDS: CLOTRIMAZOLE 1% 30 GM CRM TUBE TP SCH ×2 (09:00→21:26)
[2021-09-30] MEDS: LEVOFLOXACIN 500 MG/D5W PREMIX 100 ML IV SCH (09:00)
--- NOTE | 2021-09-30 09:30 | NUR ---
PT ON BED EATING BREAKFAST NO DISTRESS NOTED. ALL SAFETY MEASURE IN PLACE.
--- NOTE | 2021-09-30 10:00 | NUR ---
GIVEN ALL DUE MEDIATION TOLERATED WELL. PT ALERT ORIENTED. REPOSITION SEVERAL TIME.
[2021-09-30] MEDS: TAMSULOSIN 0.4 MG CAP PO SCH (10:03)
[2021-09-30] MEDS: POTASSIUM CHLORIDE 10 MEQ TABER PO SCH (10:03)
[2021-09-30] MEDS: PANTOPRAZOLE 40 MG TABEC PO SCH (10:03)
[2021-09-30 12:00] VITALS: BP 104/66
--- NOTE | 2021-09-30 12:30 | NUR ---
ON BED EATING LUNCH TOLERATED WELL.
--- NOTE | 2021-09-30 13:30 | NUR ---
CHANGE AND MULTIPLE WOUND TREATMENT DONE. CALL LIGHT WITH IN EASY REACH.
[2021-09-30] MEDS: ALGINATE ROPE MC SCH (13:37)
--- NOTE | 2021-09-30 15:30 | NUR ---
IV HYDRATION INFUSING AT 70 CC/HOUR NO SIGN AND SYMPTOMS OF INFECTION. WATCHING TV NO ADVERSE REACTION ON ANTIBIOTIC THERAPY.
--- NOTE | 2021-09-30 17:30 | NUR ---
ON BED RESTING WITH CALL LIGHT WITH IN EASY REACH. PT REQUESTED FOR JELLO GIVEN AND TOLERATED WELL.
--- NOTE | 2021-09-30 19:30 | NUR ---
ENDORSE TO HISTOLOGIST NURSE FOR CONTINUITY OF CARE.
--- NOTE | 2021-09-30 19:31 | NUR ---
RECEIVED REPORT FORM MORNING SHIFT NURSE FOR CONTINUITY OF CARE. PATIENT IS STABLE IN BED. A&OX4. VERBALLY RESPONSIVE AND ABLE TO COMMUNICATE NEEDS. DENIES PAIN AT THIS TIME. BREATHING EVEN AND UNLABORED. ON ROOM AIR WITH NO APPARENT S/SX OF ACUTE DISTRESS. IV SITE IS INTACT/PATENT WITH D5NS INFUSING AT 70ML/HOUR. VISIBLE OUTPUT ON GRIFFITHS CATHETER. PLAN OF CARE AND WHITE COMMUNICATION BOARD UPDATED. BED IN LOW/LOCKED POSITION. CALL LIGHT WITHIN REACH. WILL CONTINUE TO MONITOR.
--- NOTE | 2021-09-30 19:35 | NUR ---
Patient's Plan of Care was discussed and reviewed with KARIN: JOHN
[2021-09-30 20:00] VITALS: BP 111/73
[2021-09-30] MEDS: ZOLPIDEM 5 MG TAB PO PRN (21:26)
--- NOTE | 2021-09-30 21:45 | NUR ---
ADMINISTERED SCHEDULED MEDICATIONS PER MD ORDER. TOLERATED WELL. NO ADVERSE REACTION NOTED. PATIENT DENIES PAIN. RESPIRATIONS EVEN AND UNLABORED WITH NO APPARENT S/SX OF ACUTE DISTRESS. REFILLED WATER PITCHER AND PROVIDED SNACKS. WHITE COMMUNICATION BOARD UPDATED. ALL SAFETY MEASURES IN PLACE. CALL LIGHT WITHIN REACH. ALL SAFETY MEASURES IN PLACE. CALL LIGHT WITHIN REACH.
--- NOTE | 2021-09-30 23:45 | NUR ---
ANSWERED CALL LIGHT. BROUGHT PATIENT SOME REQUESTED SNACKS. DENIES PAIN. RESPIRATIONS EVEN AND UNLABORED WITH NO APPARENT S/SX OF ACUTE DISTRESS. WHITE COMMUNICATION BOARD UPDATED. ALL SAFETY MEASURES IN PLACE. CALL LIGHT WITHIN REACH. WILL CONTINUE TO MONITOR.
[2021-10-01] MEDS: NYSTATIN CRE 100 MU/GM 15 GM TUBE TP SCH ×2 (01:08→12:48)
--- NOTE | 2021-10-01 03:45 | NUR ---
ROUNDED ON PATIENT. STABLE AND ASLEEP. CHEST IS RISING AND FALLING. RESPIRATIONS EVEN AND UNLABORED WITH NO APPARENT S/SX OF ACUTE DISTRESS. WHITE COMMUNICATION BOARD UPDATED. ALL SAFETY MEASURES IN PLACE. CALL LIGHT WITHIN REACH. WILL CONTINUE TO MONITOR.
[2021-10-01 04:00] VITALS: BP 118/77
--- NOTE | 2021-10-01 05:45 | NUR ---
CLEANED AND CHANGED PATIENT. PROVIDED SKIN CARE. EMPTIED F/C BAG. TOLERATED WELL. DENIES PAIN. RESPIRATIONS EVEN AND UNLABORED WITH NO APPARENT S/SX OF ACUTE DISTRESS. WHITE COMMUNICATION BOARD UPDATED. ALL SAFETY MEASURES IN PLACE. CALL LIGHT WITHIN REACH. WILL CONTINUE TO MONITOR.
[2021-10-01 06:51] LABS: BASOPHILS # (AUTO) 0.1 K/uL (0.00-0.22); BASOPHILS % (AUTO) 1.2 % (0.0-2.0); EOSINOPHILS # (AUTO) 0.2 K/uL (0-0.4); EOSINOPHILS % (AUTO) 2.1 % (0.0-4.0); HEMATOCRIT 36.9 % (36-52); HEMOGLOBIN 12.4 g/dL (12.0-18.0); LYMPHOCYTES # (AUTO) 1.9 K/uL (2.0-11.5); LYMPHOCYTES % (AUTO) 23.4 % (20.5-51.1); MEAN CORPUSCULAR HEMOGLOBIN 29 pg (27-31); MEAN CORPUSCULAR HGB CONC 34 g/dL (33-37); MONOCYTES # (AUTO) 0.7 K/uL (0.8-1.0); MONOCYTES % (AUTO) 8.4 % (1.7-9.3); NEUTROPHILS # (AUTO) 5.3 K/uL (1.8-7.7); NEUTROPHILS % (AUTO) 64.9 % (42.2-75.2); PLATELET COUNT (AUTO) 392 K/uL (140-450); RED BLOOD CELL COUNT(AUTO) 4.29 MIL/uL (4.20-6.10); RED CELL DISTRIBUTION WIDTH 14.2 % (11.6-13.7); WHITE BLOOD COUNT (AUTO) 8.1 K/uL (4.8-10.8)
[2021-10-01 06:53] LABS: ANION GAP 12.2 (8-16); CARBON DIOXIDE 29.7 mmol/L (21-32); CREATININE 1.1 mg/dL (0.6-1.3); POTASSIUM 3.9 mmol/L (3.5-5.1)
--- NOTE | 2021-10-01 07:40 | NUR ---
ENDORSED PATIENT TO MORNING SHIFT NURSE FOR CONTINUITY OF CARE. PATIENT IS STABLE.
--- NOTE | 2021-10-01 07:42 | NUR ---
RECEIVED REPORT FORM ROTARY PEEL OVEN TENDER NURSE FOR CONTINUITY OF CARE. PATIENT IS STABLE IN BED. A&OX4. VERBALLY RESPONSIVE AND ABLE TO COMMUNICATE NEEDS. DENIES PAIN AT THIS TIME. BREATHING EVEN AND UNLABORED. ON ROOM AIR WITH NO APPARENT S/SX OF ACUTE DISTRESS. IV SITE IS INTACT/PATENT INFUSING FLUIDS WELL. VISIBLE OUTPUT ON GRIFFITHS CATHETER. PLAN OF CARE DISCUSSED. BED IN LOW/LOCKED POSITION. CALL LIGHT WITHIN REACH. WILL CONTINUE TO MONITOR.
[2021-10-01 08:00] VITALS: BP 111/61
[2021-10-01] MEDS: CLOTRIMAZOLE 1% 30 GM CRM TUBE TP SCH ×2 (10:00→21:41)
[2021-10-01] MEDS: LEVOFLOXACIN 500 MG/D5W PREMIX 100 ML IV SCH (10:30)
[2021-10-01] MEDS: POTASSIUM CHLORIDE 10 MEQ TABER PO SCH (10:30)
[2021-10-01] MEDS: PANTOPRAZOLE 40 MG TABEC PO SCH (10:30)
[2021-10-01] MEDS: TAMSULOSIN 0.4 MG CAP PO SCH (10:30)
--- NOTE | 2021-10-01 10:40 | NUR ---
ALL SCHEDULED MEDS GIVEN. PT IS STABLE. NO DISTRESS NOTED. WILL CONTINUE TO MONITOR.
[2021-10-01] MEDS: DEXT 5% /NACL 0.9% 1,000 ML IV SCH (11:26)
--- NOTE | 2021-10-01 12:30 | NUR ---
CHECKED ON PATIENT. PT IS SLEEPING. NOTED CHEST RISE AND FALL. NO DISTRESS NOTED. WILL CONTINUE TO MONITOR.
[2021-10-01] MEDS: ALGINATE ROPE MC SCH (12:47)
--- NOTE | 2021-10-01 13:10 | NUR ---
10/01/21 RD FOLLOW UP COMPLETED. PLEASE REFER TO NUTRITION ASSESSMENT UNDER CARE ACTIVITY FOR ESTIMATED NUTRITIONAL NEEDS. 1. CONTINUE CLEAR LIQUID DIET MEDICALLY APPROPRIATE 2. WHEN MEDICALLY APPROPRIATE, CONSIDER REGULAR DIET 3. PROVIDE TARA BID PER RD PROTOCOL 4. RD TO FOLLOW-UP 2-3 DAYS, HIGH RISK KAREN ARGUELLO, ROSINA
--- NOTE | 2021-10-01 14:40 | NUR ---
CHECKED ON PATIENT. PT IS SLEEPING. NOTED CHEST RISE AND FALL. NO DISTRESS NOTED. WILL CONTINUE TO MONITOR.
[2021-10-01 16:00] VITALS: BP 112/56
--- NOTE | 2021-10-01 16:30 | NUR ---
PATIENT WAS COMPLAINING OF BACK ISSUES DUE TO POSITIONING. ADJUSTED PATIENT
--- NOTE | 2021-10-01 19:25 | NUR ---
ENDORSED TO VIBRATION ENGINEER NURSE FOR CONTINUITY OF CARE. PT IS STABLE.
[2021-10-01 20:00] VITALS: BP 126/75
--- NOTE | 2021-10-01 20:00 | NUR ---
REVIEWED PLAN OF CARE WITH JOHN ROPER AND WILL CONTINUE WITH PLAN OF CARE.
--- NOTE | 2021-10-01 21:30 | NUR ---
ADMINISTERED SCHEDULED MEDICATIONS PER MD ORDER. TOLERATED WELL. NO ADVERSE REACTION NOTED. DENIES PAIN. RESPIRATIONS EVEN AND UNLABORED WITH NO APPARENT S/SX OF ACUTE DISTRESS. PROVIDED SNACKS. WHITE COMMUNICATION BOARD UPDATED. ALL SAFETY MEASURES IN PLACE. CALL LIGHT WITHIN REACH. ALL SAFETY MEASURES IN PLACE. WILL CONTINUE TO MONITOR.
[2021-10-01] MEDS: ZOLPIDEM 5 MG TAB PO PRN (21:41)
--- NOTE | 2021-10-01 23:30 | NUR ---
ANSWERED CALL LIGHT. ASSISTED PATIENT WITH REPOSITIONING FOR COMFORT. DENIES PAIN. RESPIRATIONS EVEN AND UNLABORED WITH NO APPARENT S/SX OF ACUTE DISTRESS. ALL SAFETY MEASURES IN PLACE. CALL LIGHT WITHIN REACH. WILL CONTINUE TO MONITOR.
[2021-10-02] MEDS: DEXT 5% /NACL 0.9% 1,000 ML IV SCH ×2 (01:08→15:26)
[2021-10-02] MEDS: NYSTATIN CRE 100 MU/GM 15 GM TUBE TP SCH ×2 (01:22→13:23)
--- NOTE | 2021-10-02 01:30 | NUR ---
CHECKED PATIENT. STABLE AND ASLEEP. CHEST IS RISING AND FALLING. RESPIRATIONS EVEN AND UNLABORED WITH NO APPARENT S/SX OF ACUTE DISTRESS. WHITE COMMUNICATION BOARD UPDATED. ALL SAFETY MEASURES IN PLACE. CALL LIGHT WITHIN REACH. WILL CONTINUE TO MONITOR.
[2021-10-02 04:00] VITALS: BP 121/80
--- NOTE | 2021-10-02 05:30 | NUR ---
CLEANED AND CHANGED PATIENT. PROVIDED SKIN CARE. TOLERATED WELL. DENIES PAIN. RESPIRATIONS EVEN AND UNLABORED WITH NO APPARENT S/SX OF ACUTE DISTRESS. WHITE COMMUNICATION BOARD UPDATED. ALL SAFETY MEASURES IN PLACE. CALL LIGHT WITHIN REACH. WILL CONTINUE TO MONITOR.
--- NOTE | 2021-10-02 07:05 | NUR ---
ENDORSED PATIENT TO MORNING SHIFT NURSE FOR CONTINUITY OF CARE. PATIENT IS STABLE.
--- NOTE | 2021-10-02 07:06 | NUR ---
RECEIVED BEDSIDE REPORT FROM CHEMICAL PATHOLOGIST NURSE FOR CONTINUITY OF CARE. PT IS BREATHING EVEN AND UNLABORED. NO S/S OF DISTRESS. PT IS STABLE.
[2021-10-02 07:46] LABS: BASOPHILS # (AUTO) 0.1 K/uL (0.00-0.22); BASOPHILS % (AUTO) 0.8 % (0.0-2.0); EOSINOPHILS # (AUTO) 0.1 K/uL (0-0.4); EOSINOPHILS % (AUTO) 1.5 % (0.0-4.0); HEMATOCRIT 36.1 % (36-52); LYMPHOCYTES # (AUTO) 1.5 K/uL (2.0-11.5); MEAN CORPUSCULAR HEMOGLOBIN 29 pg (27-31); MEAN CORPUSCULAR HGB CONC 33 g/dL (33-37); MEAN CORPUSCULAR VOLUME 85.7 fL (80-94); MONOCYTES # (AUTO) 0.9 K/uL (0.8-1.0); MONOCYTES % (AUTO) 10.3 % (1.7-9.3); NEUTROPHILS # (AUTO) 6.3 K/uL (1.8-7.7); NEUTROPHILS % (AUTO) 70.4 % (42.2-75.2); PLATELET COUNT (AUTO) 334 K/uL (140-450); RED BLOOD CELL COUNT(AUTO) 4.22 MIL/uL (4.20-6.10); RED CELL DISTRIBUTION WIDTH 14.1 % (11.6-13.7); WHITE BLOOD COUNT (AUTO) 8.9 K/uL (4.8-10.8)
[2021-10-02 08:00] VITALS: BP 103/66
[2021-10-02 08:37] LABS: ANION GAP 10.9 (8-16); CARBON DIOXIDE 27.1 mmol/L (21-32); CREATININE 1.1 mg/dL (0.6-1.3)
[2021-10-02] MEDS: LEVOFLOXACIN 500 MG/D5W PREMIX 100 ML IV SCH (09:29)
[2021-10-02] MEDS: PANTOPRAZOLE 40 MG TABEC PO SCH (09:30)
[2021-10-02] MEDS: TAMSULOSIN 0.4 MG CAP PO SCH (09:30)
[2021-10-02] MEDS: FOAM DRESSING TP SCH (09:30)
[2021-10-02] MEDS: POTASSIUM CHLORIDE 10 MEQ TABER PO SCH (09:30)
[2021-10-02] MEDS ORDERED: LEVO750T51 PO (10:30)
[2021-10-02] MEDS: ALGINATE ROPE MC SCH (13:22)
[2021-10-02 13:53] VITALS: BP 103/66
--- NOTE | 2021-10-02 18:30 | NUR ---
PT READY FOR DC. CHANGED GRIFFITHS TO 16FR AND FAMILY DECIDED NOT TO TEACHER [place] PT. THEY STATED THEY WILL CALL BUGGY RUNNER AND DOCTOR TOMORROW TO REQUEST FOR SNF PLACEMENT.
--- NOTE | 2021-10-02 19:40 | NUR ---
ENDORSED PT TO PENSIONS RETIREMENT PLAN SPECIALIST NURSE FOR CONTINUITY OF CARE.
[2021-10-02 23:04] VITALS: BP 115/69
[2021-10-02] MEDS: ZOLPIDEM 5 MG TAB PO PRN (23:59)
[2021-10-03] MEDS: PIPERACILLIN/TAZOBACTAM 3.375 GM in DEXTROSE 5% 50 ML IV SCH (01:00)
[2021-10-03] MEDS: NYSTATIN CRE 100 MU/GM 15 GM TUBE TP SCH ×2 (01:48→12:11)
[2021-10-03 05:40] VITALS: BP 125/70
[2021-10-03 06:57] LABS: BASOPHILS # (AUTO) 0.1 K/uL (0.00-0.22); BASOPHILS % (AUTO) 0.5 % (0.0-2.0); EOSINOPHILS # (AUTO) 0.2 K/uL (0-0.4); EOSINOPHILS % (AUTO) 1.6 % (0.0-4.0); HEMOGLOBIN 11.7 g/dL (12.0-18.0); LYMPHOCYTES # (AUTO) 1.3 K/uL (2.0-11.5); LYMPHOCYTES % (AUTO) 11.4 % (20.5-51.1); MEAN CORPUSCULAR HEMOGLOBIN 29 pg (27-31); MEAN CORPUSCULAR HGB CONC 33 g/dL (33-37); MEAN CORPUSCULAR VOLUME 85.7 fL (80-94); MONOCYTES % (AUTO) 8.7 % (1.7-9.3); NEUTROPHILS # (AUTO) 8.7 K/uL (1.8-7.7); NEUTROPHILS % (AUTO) 77.8 % (42.2-75.2); PLATELET COUNT (AUTO) 329 K/uL (140-450); RED BLOOD CELL COUNT(AUTO) 4.09 MIL/uL (4.20-6.10); WHITE BLOOD COUNT (AUTO) 11.2 K/uL (4.8-10.8)
--- NOTE | 2021-10-03 07:27 | NUR ---
RECEIVED BEDSIDE REPORT FROM BROACH OPERATOR PT IS AWAKE, NO S/S OF DISTRESS. BREATHING IS EVEN AND UNLABORED. IVF D5NS RUNNING AT 70 ML/HR. ALL SAFETY MEASURES IN PLACE. CALL LIGHT WITHIN REACH. SKIN INTACT. PT IS STABLE.
[2021-10-03 07:32] LABS: ANION GAP 9.5 (8-16); CARBON DIOXIDE 26.6 mmol/L (21-32); CREATININE 1.1 mg/dL (0.6-1.3); POTASSIUM 4.1 mmol/L (3.5-5.1)
[2021-10-03 08:00] VITALS: BP 113/82
[2021-10-03] MEDS: POTASSIUM CHLORIDE 10 MEQ TABER PO SCH (09:51)
[2021-10-03] MEDS: LEVOFLOXACIN 500 MG/D5W PREMIX 100 ML IV SCH (09:51)
[2021-10-03] MEDS: TAMSULOSIN 0.4 MG CAP PO SCH (09:51)
[2021-10-03] MEDS: PANTOPRAZOLE 40 MG TABEC PO SCH (09:52)
--- NOTE | 2021-10-03 10:00 | NUR ---
PT IS AWAKE, NO S/S OF DISTRESS. BREATHING IS EVEN AND UNLABORED. IVF D5NS RUNNING AT 70 ML/HR. ALL SAFETY MEASURES IN PLACE. CALL LIGHT WITHIN REACH. SKIN INTACT. PT IS STABLE.
[2021-10-03] MEDS: DEXT 5% /NACL 0.9% 1,000 ML IV SCH ×2 (12:00→20:02)
[2021-10-03] MEDS ORDERED: VANCOMYCIN PER PHARMACY MC PRN (12:00)
[2021-10-03] MEDS: ALGINATE ROPE MC SCH (12:11)
[2021-10-03] MEDS ORDERED: VANCOMYCIN 1,000 MG in DEXTROSE 5% 250 ML IV SCH (13:00)
--- NOTE | 2021-10-03 13:00 | NUR ---
WOUND CARE PERFORMED ON PT. PT IS NOT COMPLAINING OF PAIN. PT TOLERATED WELL. ALL DRESSINGS CHANGED. NO CHANGE TO WOUNDS.
--- NOTE | 2021-10-03 14:00 | NUR ---
NO REACTION TO FIRST DOSE OF VANCO. NO S/S OF DISTRESS. BREATHING IS EVEN AND UNLABORED. IVF D5NS RUNNING AT 70 ML/HR. ALL SAFETY MEASURES IN PLACE. CALL LIGHT WITHIN REACH. SKIN INTACT. PT IS STABLE.
[2021-10-03 16:00] VITALS: BP 109/58
--- NOTE | 2021-10-03 17:00 | NUR ---
PT HAD LARGE BM. WAS CHANGED. PT IS BREATHING EVEN AND UNLABORED. PT IS STABLE.
--- NOTE | 2021-10-03 19:20 | NUR ---
ENDORSED TO TECHNICAL RESEARCH SCIENTIST NURSE FOR CONTINUITY OF CARE. POC DISCUSSED.
[2021-10-03] MEDS: ZOLPIDEM 5 MG TAB PO PRN (21:03)
[2021-10-04] MEDS ORDERED: PIPERACILLIN/TAZOBACTAM 3.375 GM VIAL IV ONE (03:05)
[2021-10-04] MEDS: PIPERACILLIN/TAZOBACTAM 3.375 GM in DEXTROSE 5% 50 ML IV SCH ×3 (05:00→22:22)
[2021-10-04 05:17] VITALS: BP 115/65
--- NOTE | 2021-10-04 07:33 | NUR ---
PHYSICAL THERAPY CO-SIGN The Physical Therapy Progress Notes documented by Health Policy Nurse have been reviewed. Reviewed/Co-Signed by: Hannah Knowles Documentation Done by: RONALD SUTHERLAND PTA Addendum: 10/04/21 at 7023 by Hannah Knowles PT Amended: Links added.
--- NOTE | 2021-10-04 07:33 | NUR ---
PHYSICAL THERAPY CO-SIGN The Physical Therapy Progress Notes documented by Nut Sheller have been reviewed. Reviewed/Co-Signed by: Hannah Knowles Documentation Done by: RONALD SUTHERLAND PTA Addendum: 10/04/21 at 6648 by Hannah Knowles PT Amended: Links added.
--- NOTE | 2021-10-04 07:39 | NUR ---
RECEIVED BEDSIDE REPORT FROM EMERGENCY SERVICES DISPATCHER NURSE. PT IS AWAKE, NO S/S OF DISTRESS. BREATHING IS EVEN AND UNLABORED. IVF D5NS RUNNING AT 70 ML/HR. ALL SAFETY MEASURES IN PLACE. CALL LIGHT WITHIN REACH. PT IS STABLE.
[2021-10-04 07:56] LABS: ANION GAP 11.4 (8-16); CARBON DIOXIDE 27.6 mmol/L (21-32); CREATININE 0.9 mg/dL (0.6-1.3)
[2021-10-04 08:00] VITALS: BP 146/85
[2021-10-04] MEDS: PANTOPRAZOLE 40 MG TABEC PO SCH (09:05)
[2021-10-04] MEDS: TAMSULOSIN 0.4 MG CAP PO SCH (09:05)
[2021-10-04] MEDS: POTASSIUM CHLORIDE 10 MEQ TABER PO SCH (09:05)
[2021-10-04] MEDS ORDERED: ZOS3.375PM IV (10:25)
[2021-10-04] MEDS: ALGINATE ROPE MC SCH (12:01)
--- NOTE | 2021-10-04 12:50 | NUR ---
10/04/21 RD FOLLOW UP COMPLETED PLEASE REFER TO NUTRITION ASSESSMENT UNDER CARE ACTIVITY FOR ESTIMATED NUTRITIONAL NEEDS. 1. CONTINUE REGULAR, MECHANICAL DIET TOLERATED 2. PROVIDE TARA BID PER RD PROTOCOL 3. RD TO FOLLOW-UP 3-5 DAYS, MODERATE RISK (DOWNGRADED D/T PT EATING WELL) BECKY ROMERO RD
[2021-10-04 16:00] VITALS: BP 100/64
--- NOTE | 2021-10-04 16:00 | NUR ---
PT IS AWAKE, NO S/S OF DISTRESS. BREATHING IS EVEN AND UNLABORED.IV SL INTACT. ALL SAFETY MEASURES IN PLACE. CALL LIGHT WITHIN REACH. PT IS STABLE.
--- NOTE | 2021-10-04 19:35 | NUR ---
ENDORSED PT TO MULTIMEDIA TEACHER NURSE FOR CONTINUITY OF CARE. POC DISCUSSED.
--- NOTE | 2021-10-04 19:36 | NUR ---
RECD. RESTING IN BED, AWAKE, A/OX4. RESPIRATION EVEN AND UNLABORED. IV SALINE LOCK AT THE RIGHT FOREARM G22, PATENT AND INTACT. WITH WOUNDS IN LEFT AND RIGHT ELBOWS COVERED WITH DRESSING DRY AND INTACT. F/C PATENT DRAINING CLEAR YELLOW URINE. SAFETY MEASURES ENFORCED, BED IN THE LOWEST POSITION, CALL LIGHT IN REACH. ON IV ANTIBIOTICS. DENIES PAIN 0/10.
--- NOTE | 2021-10-04 21:00 | NUR ---
RESTING IN BED, JUICES GIVE REQUESTED. ASSISTED TO REPOSITIONED IN BED.
--- NOTE | 2021-10-05 | NUR ---
STILL AWAKE IN BED, RESPIRATION EVEN AND UNLABORED. SAFETY MEASURES ENFORCED.
--- NOTE | 2021-10-05 02:00 | NUR ---
CHECKED PATIENT, STILL AWAKE. GIVEN WARM BLANKET AND ASSISTED TO REPOSITIONED IN BED FOR COMFORT. ADVISED TO GO TO SLEEP.
[2021-10-05 04:00] VITALS: BP 108/53
--- NOTE | 2021-10-05 04:00 | NUR ---
SLEEPING COMFORTABLY IN BED, RESPIRATION EVEN AND UNLABORED. SAFETY MEASURES ENFORCED.
[2021-10-05] MEDS: PIPERACILLIN/TAZOBACTAM 3.375 GM in DEXTROSE 5% 50 ML IV SCH ×2 (05:16→13:27)
[2021-10-05 06:59] LABS: BASOPHILS # (AUTO) 0.1 K/uL (0.00-0.22); BASOPHILS % (AUTO) 1.1 % (0.0-2.0); EOSINOPHILS # (AUTO) 0.1 K/uL (0-0.4); EOSINOPHILS % (AUTO) 1.6 % (0.0-4.0); HEMATOCRIT 32.7 % (36-52); HEMOGLOBIN 10.9 g/dL (12.0-18.0); LYMPHOCYTES # (AUTO) 0.6 K/uL (2.0-11.5); MEAN CORPUSCULAR HEMOGLOBIN 29 pg (27-31); MEAN CORPUSCULAR HGB CONC 33 g/dL (33-37); MEAN CORPUSCULAR VOLUME 85.7 fL (80-94); MONOCYTES # (AUTO) 0.8 K/uL (0.8-1.0); MONOCYTES % (AUTO) 8.7 % (1.7-9.3); NEUTROPHILS # (AUTO) 7.3 K/uL (1.8-7.7); NEUTROPHILS % (AUTO) 81.6 % (42.2-75.2); PLATELET COUNT (AUTO) 289 K/uL (140-450); RED BLOOD CELL COUNT(AUTO) 3.81 MIL/uL (4.20-6.10); RED CELL DISTRIBUTION WIDTH 14.2 % (11.6-13.7); WHITE BLOOD COUNT (AUTO) 8.9 K/uL (4.8-10.8)
--- NOTE | 2021-10-05 07:00 | NUR ---
RESPIRATORY STATUS REMAIN STABLE. WILL ENDORSE TO AM SHIFT NURSE FOR CONTINUITY OF CARE.
[2021-10-05 07:50] LABS: CARBON DIOXIDE 26.9 mmol/L (21-32); CREATININE 1.1 mg/dL (0.6-1.3); POTASSIUM 3.9 mmol/L (3.5-5.1)
[2021-10-05 08:00] VITALS: BP 104/59
--- NOTE | 2021-10-05 08:00 | NUR ---
RECEIVED REPORT FROM HIGH LIFT MULE OPERATOR FOR CONTINUITY OF CARE. PATIENT ALERT AWAKE ORIENTED X4 NOT IN ANY DISTRESS NOTED. DENIES PAIN AT THIS TIME. WITH SL ON HIS RIGHT HAND INTACT. WITH GRIFFITHS CATHETER, DRAINING TO YELLOWISH OUTPUT. CALL LIGHT WITHIN REACH. NEEDS ATTENDED. WILL CONTINUE TO MONITOR.
[2021-10-05] MEDS: PANTOPRAZOLE 40 MG TABEC PO SCH (09:02)
[2021-10-05] MEDS: POTASSIUM CHLORIDE 10 MEQ TABER PO SCH (09:03)
[2021-10-05] MEDS: FOAM DRESSING TP SCH (09:03)
[2021-10-05] MEDS: TAMSULOSIN 0.4 MG CAP PO SCH (09:03)
--- NOTE | 2021-10-05 09:15 | NUR ---
PATIENT EATING BREAKFAST, DUE MEDICATIONS GIVEN NAN TOLERATED WELL. WILL CONTINUE TO MONITOR.
--- NOTE | 2021-10-05 13:00 | NUR ---
PATIENT FOR DISCHARGE TODAY, REPORT GIVEN TO KARIN DAMON.
[2021-10-05] MEDS: ALGINATE ROPE MC SCH (13:27)
--- NOTE | 2021-10-05 14:26 | NUR ---
TRANSPORTATION HERE TO [facility] PATIENT, REPORT GIVEN. PATIENT IN STABLE CONDITION. SITER IS AWARE ABOUT TRANSFER.
== END 2021-10-05 14:20 | disposition home health service (06) | DRG 871 ==
LOC: MED 13:25 → MTU 21:26 → OBSVTOIN 09-28 16:28 → MMU 09-29 03:00
PROVIDERS: ADMIT Family Medicine; ATTEND Family Medicine
DX: A41.9 Sepsis, unspecified organism (principal); E43 Unspecified severe protein-calorie malnutrition; L03.113 Cellulitis of right upper limb; N39.0 Urinary tract infection, site not specified; L03.114 Cellulitis of left upper limb; G80.9 Cerebral palsy, unspecified; L98.429 Non-pressure chronic ulcer of back with unspecified severity; N40.1 Benign prostatic hyperplasia with lower urinary tract symptoms; M41.9 Scoliosis, unspecified; Z20.822 Contact with and (suspected) exposure to COVID-19; N48.1 Balanitis; B96.1 Klebsiella pneumoniae [K. pneumoniae] as the cause of diseases classified elsewhere; B96.5 Pseudomonas (aeruginosa) (mallei) (pseudomallei) as the cause of diseases classified elsewhere; Z68.24 Body mass index [BMI] 24.0-24.9, adult
CPT/HCPCS: 36415; 71045; 80048; 80053; 81001; 82150; 83036; 83605; 83690; 83735; 83880; 84100; 84436; 84439; 84443; 84479; 84484; 85025; 85610; 85730; 87040; 87070; 87075; 87086; 87186; 87205; 97110; 97112; 97163-GP; 97530; G0378; J0696; J1956; J2543; J3370; J7060; Q9967

== ENCOUNTER 2022-02-22 17:02 | Emergency (ER) | payer OTHER, MEDICAID ==
[~2022-02-22] VITALS: Ht 157.5 cm; Wt 48.1 kg
[~2022-02-22 17:02] MED LIST changes: -CEPH-588 PO; -CLIN300C2 PO; -SULF-59 PO; +ZOS3.375PM IV
[2022-02-22 17:07] VITALS: BP 107/67
--- NOTE | 2022-02-22 17:38 | NUR ---
LAB AT BEDSIDE.
--- NOTE | 2022-02-22 17:44 | NUR ---
DR. GUPTA AT BEDSIDE EVALUATING PATIENT.
[2022-02-22 17:47] LABS: BASOPHILS # (AUTO) 0.1 K/uL (0.00-0.22); BASOPHILS % (AUTO) 1.2 % (0.0-2.0); EOSINOPHILS # (AUTO) 0.4 K/uL (0-0.4); EOSINOPHILS % (AUTO) 4.5 % (0.0-4.0); HEMATOCRIT 41.6 % (36-52); HEMOGLOBIN 13.4 g/dL (12.0-18.0); LYMPHOCYTES % (AUTO) 20.6 % (20.5-51.1); MEAN CORPUSCULAR HEMOGLOBIN 26 pg (27-31); MEAN CORPUSCULAR HGB CONC 32 g/dL (33-37); MEAN CORPUSCULAR VOLUME 80.7 fL (80-94); MONOCYTES # (AUTO) 0.9 K/uL (0.8-1.0); MONOCYTES % (AUTO) 9.6 % (1.7-9.3); NEUTROPHILS # (AUTO) 6.2 K/uL (1.8-7.7); NEUTROPHILS % (AUTO) 64.1 % (42.2-75.2); PLATELET COUNT (AUTO) 214 K/uL (140-450); RED BLOOD CELL COUNT(AUTO) 5.15 MIL/uL (4.20-6.10); RED CELL DISTRIBUTION WIDTH 18.8 % (11.6-13.7); WHITE BLOOD COUNT (AUTO) 9.7 K/uL (4.8-10.8)
--- NOTE | 2022-02-22 17:49 | NUR ---
RADIOLOGY AT BEDSIDE.
[2022-02-22 18:05] LABS: ALBUMIN 3.2 g/dL (3.4-5.0); ANION GAP 11.2 (8-16); CARBON DIOXIDE 28.8 mmol/L (21-32); TOTAL BILIRUBIN 0.4 mg/dL (0.0-1.0)
[2022-02-22] MEDS ORDERED: LIDOCAINE MPF 1% 10 MG/ML VIAL INJ ONE (18:25)
--- NOTE | 2022-02-22 18:31 | NUR ---
66 Y/O MALE BIBA FROM [facility] C/O REDNESS TO ABOVE LEFT ELBOW AMPUTATION. PATIENT HAS REDNESS, SWELLING AND IS WARM TO TOUCH. PATIENT STILL HAS FEELING ON LEFT ARM. PATIENT DENIES ANY PAIN. DENIES FEVER AND CHILLS. PATIENT HAS GRIFFITHS IN PLACE. MEDICAL HISTORY :CEREBRAL PALSY, PYOGENIC ARTHRITIS, BPH, POLYNEUROPATHY NKDA
--- NOTE | 2022-02-22 18:47 | NUR ---
DR. GUPTA AT BEDSIDE RE-EVALUATING PATIENT.
[2022-02-22] MEDS ORDERED: CEPH-588 PO (19:08)
--- NOTE | 2022-02-22 19:08 | NUR ---
PATIENT WANTS SISTER TO BE CONTACTED IN CASE OF EMERGENCY. SISTER IS SLY ZAMORA .
[2022-02-22] MEDS ORDERED: cephALEXin 500 MG CAP PO ONE (19:10)
--- NOTE | 2022-02-22 19:20 | NUR ---
Pt report given to KARIN FABIAN. Transfer of care at this time.
[2022-02-22] MEDS ORDERED: KEFSUS PO (19:29)
[2022-02-22] MEDS ORDERED: CEPHALEXIN SUSP. 250 MG/5 ML PO ONE (19:30)
[2022-02-22] MEDS ORDERED: CEPHALEXIN SUSP. 250 MG/5 ML ONE (19:43)
--- NOTE | 2022-02-22 20:40 | NUR ---
ATTEMPTED TO CALL FACILITY TO ARRANGE FOR TRANSPORT X3, NO ANSWER AT THIS TIME.
--- NOTE | 2022-02-22 20:45 | NUR ---
SPOKE TO PATIENT SISTER SLY, SHE STATED SHE IS UNABLE TO TRANSPORT PATIENT AT THIS TIME.
--- NOTE | 2022-02-22 21:00 | NUR ---
PATIENT ON THE PHONE SPEAKING TO SISTER
--- NOTE | 2022-02-23 01:30 | NUR ---
ASSISTED PATIENT WITH REPOSITIONING PER REQ. ALL NEEDS MET
--- NOTE | 2022-02-23 03:12 | NUR ---
REPOSITIONED PATIENT IN BED. PATIENT CALM AND COOPERATIVE. NO DISTRESS NOTED. BED LOW AND LOCKED. SADE SIDE RAILS UP FOR SAFETY
--- NOTE | 2022-02-23 04:30 | NUR ---
ASSISTED PATIENT WITH REPOSITIONING. BED LOW AND LOCKED. SADE SIDE RAILS UP FOR SAFETY
--- NOTE | 2022-02-23 05:13 | NUR ---
ASSISTED PATIETN WITH REPOSITIONING.
--- NOTE | 2022-02-23 05:55 | NUR ---
ASSISTED PATIENT WITH [facility]. PATIENT CHANGED AND DRESSED. PROVIDED NEW LINEN. BED LOW AND LOCKED. SADE SIDE RAILS UP FOR SAFETY. ALL NEEDS MET AT THIS TIME.
--- NOTE | 2022-02-23 06:51 | NUR ---
ATTEMPTED TO CALL FACILITY TO ARRANGE PICKUP X2. NO ANSWER
--- NOTE | 2022-02-23 07:00 | NUR ---
PATIENT AGGITATED THAT HE IS NOT BEING TRANSPORTED BACK TO FACILITY. PATIENT SCREAMING "NURSEEEE" ACROSS THE ER. TALKED TO PATIENT AND EXPLAINED SITUATION, STILL SCREAMING ACROSS ER.
--- NOTE | 2022-02-23 07:20 | NUR ---
REPORT GIVEN TO SAMMIE MOCTEZUMA. TRANSFER OF CARE.
--- NOTE | 2022-02-23 07:57 | NUR ---
SPOKE WITH HARRY AT [facility] REGARDING TRANSPORTATION FOR PATIENT. PER HARRY CASE MANAGEMENT WILL NOT BE IN UNTIL 829. HARRY WILL CALL BACK ONCE TRANSPORTATION HAS BEEN ARRANGED.
--- NOTE | 2022-02-23 08:04 | NUR ---
LATE ENTRY 02/22/2022: ADDITIONAL XYLOCAINE MPF 1% 10MG/ML AMPULE PULLED PER DR. GUPTA.
--- NOTE | 2022-02-23 08:09 | NUR ---
PT PROVIDED WITH BREAKFAST
--- NOTE | 2022-02-23 08:45 | NUR ---
SPOKE WITH HARRY MEDICAL OFFICE REPRESENTATIVE AT [facility].CASE MANAGEMENT IS STILL WORKING ON TRANSPORTATION FOR PATIENT.
--- NOTE | 2022-02-23 09:15 | NUR ---
ASSITED PT WITH REPOSITIONING. PT RESTING IN NO APPARENT DISTRESS. BREATHING EVEN AND UNLABORED.
[2022-02-23 09:54] VITALS: BP 113/62
--- NOTE | 2022-02-23 11:24 | NUR ---
[facility] AT BEDSIDE
--- NOTE | 2022-02-23 11:25 | NUR ---
[facility] CALLED TO INFORM THEM PT IS ON HIS WAY BACK TO FACILITY.
--- NOTE | 2022-02-23 11:29 | NUR ---
Patient discharged with v/s stable. Written and verbal after care instructions given and explained. Patient alert, oriented and verbalized understanding of instructions. [facility] ambulance crew at bedside to transport patient to home via [facility] gurney. All questions addressed prior to discharge. ID band removed. Patient advised to follow up with PMD. Rx of Keflex given. Patient educated on indication of medication including possible reaction and side effects. Opportunity to ask questions provided and answered.
== END 2022-02-23 11:29 | disposition home or self-care (01) ==
LOC: MED 17:02
DX: T87.89 Other complications of amputation stump (principal); L03.114 Cellulitis of left upper limb; Z98.890 Other specified postprocedural states; Z79.2 Long term (current) use of antibiotics; Z79.899 Other long term (current) drug therapy; Y84.8 Other medical procedures as the cause of abnormal reaction of the patient, or of later complication, without mention of misadventure at the time of the procedure
CPT/HCPCS: 10160; 36415; 73060; 76882; 80053; 83605; 85025; 87040; 87070; 87075; 87205; 99285; J2001